=== PATIENT | male | born 1950 | race Caucasian/White ===

== ENCOUNTER 2024-01-13 13:33 | Outpatient (CLI) | payer MEDICARE, MEDICAID, SELFPAY | END 2024-01-13 13:34 | disposition home or self-care (01) | LOC: ANHAUDIO 13:34 | PROVIDERS: PCP Internal Medicine; Visit Provider Internal Medicine | DX: H90.41 Sensorineural hearing loss, unilateral, right ear, with unrestricted hearing on the contralateral side (principal); H90.72 Mixed conductive and sensorineural hearing loss, unilateral, left ear, with unrestricted hearing on the contralateral side | CPT/HCPCS: 92557; 92567 ==

== ENCOUNTER 2024-07-08 12:37 | Observation (INO) | payer MEDICARE, MEDICAID, SELFPAY ==
[2024-07-08] VITALS (33 sets, daily range): BP systolic 83–172; BP diastolic 53–124; PULSE 74–132; RESP 10–30; TEMP 36.4–37.7; O2SAT 94–100; BMI 22.8
--- NOTE | ~2024-07-08 | CT_ITS ---
CLINICAL INDICATION: Flank pain COMPARISON: None. TECHNIQUE: Multiple contiguous axial images of the abdomen and pelvis were performed without the admi nistration of intravenous contrast The dose-length product (DLP) was 284.78 mGy-cm. Automated exposure control and iterative reconstruction technique were employed. FINDINGS/OBSERVATIONS: Visualized lower thorax: The bilateral lung bases are clear. The heart is of normal size, without pericardial effusion. Liver: The liver demonstrates homogeneous attenuation and is not enlarged measuring 16 cm in longitudinal di mension. Gallbladder and biliary system: The gallbladder is distended, and otherwise unremarkable. Pancreas: Limited evaluation of the pancreas secondary to the lack of intravenous contrast. Spleen: The spleen demonstrates homogeneous attenuation and is not enlarged measuring 8 cm in longitudinal di mension. Kidneys: Left-sided hydronephrosis extending to the distal left ureter where a 3 mm calculus is identified. No hydronephrosis is present within the right kidney. Bilateral complex cysts with rim calcifications, for which follow-up examination is recommended with intravenous contrast, and renal mass protocol. Adrenal glands: Unremarkable. Gastrointestinal tract: Fecal stasis within the colon. Appendix: The appendix is not definitively visualized. However, no pericecal inflammatory change is identified suggest the presence of acute appendicitis. Vasculature: Calcified atherosclerotic disease. Lymph nodes: Limited evaluation without intravenous contrast. Pelvic structures: The bladder is only minimally distended, with thickened franco. The prostate gland is not enlarged. Body wall and musculoskeletal: Vertebral plana at the level of T12. Moderate degenerative disease within the remainder of the lumbosacral spine IMPRESSION: Left-sided hydroureteronephrosis secondary to a 3 mm calculus at the left ureterovesicular junction. Bilateral cysts demonstrating rim calcifications for which nonemergent ultrasound follow-up versus re nal mass protocol CT or MRI is recommended. Reviewed, dictated and finalized at location A. ER MAKER MACHINE IMPRESSION: Left-sided hydroureteronephrosis secondary to a 3 mm calculus at the left urete rovesicular junction. Bilateral cysts demonstrating rim calcifications for which nonemergent ultrasou nd follow-up versus renal mass protocol CT or MRI is recommended.
--- NOTE | ~2024-07-08 | XR_ITS ---
INTRAOPERATIVE FLUOROSCOPY: CLINICAL HISTORY: 73 years old Male; STENT PROCEDURE COMMENTS: Limited intraoperative fluoroscopy of the pelvis was performed. CUMULATIVE DOSE: 5.64 mGy FLUOROSCOPY TIME: 24.6 seconds FINDINGS/IMPRESSION: Please refer to operative note for further details. Reviewed, dictated and finalized at location A. TESTER
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
--- NOTE | 2024-07-08 12:49 | ECG_ITS ---
Test Date: 2024-07-08 13:06:38 Measurements Intervals [place] Rate: 84 P: 30 WA: 129 QRS: 53 QRSD: 81 T: 37 QT: 347 QTc: 411 Interpretive Statements SINUS RHYTHM EARLY PRECORDIAL R/S TRANSITION BORDERLINE ST-T WAVE ABNORMALITY- INFERIOR LEADS BASELINE ARTIFACT- I, II, III, AVR, AVL, AVF BORDERLINE ECG No previous ECG available for comparison Electronically Signed On 07-08-2024 16:57:33 [employer] by Aguilar Morrell D.O.
[2024-07-08 13:20] LABS: Basophils Absolute Auto 0.1 K/mm3 (0.0-0.1); Basophils Percent Auto 0.3 % (0.2-1.2); Hematocrit 40.3 % (42.0-52.0); Hemoglobin 13.6 g/dL (14.0-18.0); Immature Granulocyte Absolute 0.14 K/mm3 (0.00-0.031); Immature Granulocyte Percent A 0.8 % (0-0.5); Lymphocytes Absolute Auto 0.63 K/mm3 (0.9-3.2); Lymphocytes Percent Auto 3.6 % (18.3-44.2); Mean Corpuscular HGB Conc 33.7 g/dl (32-36); Mean Corpuscular Hemoglobin 28.9 pg (26-34); Mean Corpuscular Volume 85.7 fl (80-100); Mean Platelet Volume 10.3 fl (7.4-10.4); Monocytes Absolute Auto 1.6 K/mm3 (0.1-0.6); Neutrophils Absolute Auto 14.9 K/mm3 (1.3-6.7); Neutrophils Percent Auto 86.3 % (45.5-73.1); Platelet Count Result 234 k/mm3 (150-375); Red Cell Distribution Width 14.9 % (11.5-14.5); White Blood Count 17.3 K/mm3 (4.5-10.0)
[2024-07-08 13:29] LABS: Alanine Aminotransferase 18 U/L (6-50); Albumin Level 3.8 g/dL (3.5-5.1); Alkaline Phosphatase 86 U/L (38-126); Anion Gap 13 mmol/L (4-12); Aspartate Amino Transferase 36 U/L (17-59); Bilirubin,Total 0.8 mg/dL (0.2-1.3); Blood Urea Nitrogen 33 mg/dL (9-20); Calcium 9.3 mg/dL (8.4-10.2); Carbon Dioxide 21 mmol/L (22-30); Chloride 103 mmol/L (98-107); Estimated CRCL calculation 21 ml/min; Estimated Glomerular Filt Rate 25; Glucose 127 mg/dL (65-110); Potassium 3.9 mmol/L (3.4-5.0); Sodium 137 mmol/L (137-145)
--- OUTSIDE RECORDS SUMMARY | 2024-07-08 14:13 | XMS_ITS ---
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 Name Role Phone Rebeca Garcia Primary Care Provider Jesica Holder [phone] REASON FOR VISIT Methylphenidate refill Medications Medication SIG (Take, Route, Fr equency, Duration) Notes Start Date End Date Status Methylphenidate 20 mg 1 tablet Orally tw ice a day for 10 days F90.0 05/19/2024 Active Social History Sex Assigned At : Social History Observation Description Sex Assigned At Male Encounters Encounter Location Date Provider Diagnosis [place] [address] [facility] [place] [address] 05/19/2024 Jesica Holder Major depression F32.9 Assessments Encounter Date Diagnosis (ICD Code) Assessment Notes Treatment Notes Treatment Clinical Notes Section Notes 05/19/2024 Major depression (ICD-10 - F32.9) Plan Of Treatment Medication Medication Name Sig Start Date Stop Date Notes Methylphenidate 20 mg 1 tablet Orally tw ice a day for 10 days 05/19/2024 F90.0 Next Appt Details Provider Name:Rebeca Garcia, 04:00:00 PM, [address] [facility] [place] [place], [address], Progress Notes * MCCABE, JimmyDOB:1950 (73 yo M)Acc No.[id number]:05/19/2024 Patient: Jimmy ALONSO :1950 A ge:73 Y S ex:Male Address:[address] [place] [address], [address] * Refills Refill Methylphenidate tablet, 20 mg, Orally, 20 Tablet, 1 tablet, twice a day, 10 days, Refills=0 * true * Date: Generated for Jesús mendez/Donald/Katlyn on: 0 07/08/2024 02:12 PM BOTTOM CAGER
--- OUTSIDE RECORDS SUMMARY | 2024-07-08 14:13 | XMS_ITS | Data Portability ---
Author Organization [facility] LATOYAPhilippe Address [address] [place] [address] Care Team Providers Care Health And Safety Manager Name Role Phone DEANGELO GUSMAN Primary Care Provider Assessment Encounter Date Assessment Date Assessment LastModified by Organization Details LastModified Time 11/24/2023 11/24/2023 urology. Neurology. Management of GERD hyperlipidemia hypertension chronic back pain were discussed follow up with me in 4 months can you continue to see pain management Not available 01/02/2024 15:33:16 Plan of Treatment Reminders Order Date Submit Date Provider Last Modified By Organization Details Last Modified Time Details Appointments ANY 15 2024 01:30P M Deangelo Gusman MD Not available Not available Not available Lab CBC w/ auto diff 2023 024 [facility], [address] [place] [address], [facility] [address], [place], [address], 11/25/2023 08:24:25 lipid panel, serum 2023 024 [facility], [address] [place] [address], [address], [place], [address], 11/25/2023 08:24:24 CMP, serum or plasma 2023 024 [facility], [address] [place] [address], [address], [place], [address], 11/25/2023 08:24:25 CMP, serum or plasma 2023 024 [facility], [address], [address], [place], [address], 08/28/2023 08:21:22 PSA, total, serum or plasma 2023 024 [facility], [address], [address], [place], [address], 08/28/2023 08:21:23 iron + total iron-b inding capaci ty (TIBC) , serum 2022 023 [facility] (Lab), [address], [place], [address], 02/10/2023 08:31:25 unlist ed lab - ferrit in [email or web address]Lab), [address], [place], [address], 01/18/2023 16:36:49 unlist ed lab - CBC with differ ential /plate let [email or web address]Lab), [address], [place], [address], 01/18/2023 16:36:49 CMP, serum or plasma 2022 023 [facility], [address] [place], [place] [address], [address], [place], [address], 11/03/2022 20:08:58 HbA1c (hemog lobin A1c), blood 2022 023 [facility], [address] [place], [place] [address], [address], [place], [address], 11/04/2022 06:17:14 testos terone , total, serum 2022 023 [facility], [address] [facility], [address], [place], [address], 11/04/2022 06:17:14 lipid panel, serum 2022 023 [facility], [address], [address], [place], [address], 11/03/2022 20:08:58 CBC w/ auto diff 2022 023 [facility], [address] [facility], [address], [place], [address], 11/03/2022 20:09:00 urinal ysis, dipsti ck 2022 023 [facility], [address] [facility], [address], [place], [address], 11/03/2022 20:08:59 Referral neurol ogist referr al 2023 024 deven Mcneil MD, [address] [facility], [facility], [place], [address], 06/19/2024 09:23:58 urolog ist referr al 2023 024 deven De Guzman MD, [address] [place], [address], 06/19/2024 09:23:58 neurol ogist referr al - pLEASE CALL PATIJESE T FOR APPOIN TMERNT , THANKS ! 2023 024 atmaribell Not available 04/03/2024 15:56:56 audiol ogist referr al - pLEASE CALL ZULEMA T FOR APPOIN TMENT, THANKS ! [facility], [address] [place] [address] [address], [place], [address], 01/14/2024 10:11:04 urolog ist referr al - Please call zulema t for appoin tment, thanks ! [address] [facility] Asaf Johnson MD, [address], [place], [address], 06/15/2023 15:22:05 gastro entero logist referr al [address], [address], [place], [address], 12/14/2022 12:35:23 neurol ogist referr al - Please call zulema t for appoin tment, thanks !! 2022 023 [facility], [address] [facility], [place] [address], [place], [address], 06/15/2023 15:22:06 neurol ogist referr al [address] [facility] Not available 12/25/2022 11:51:36 urolog ist referr al 2022 023 [facility], [address], [place], [address], 06/15/2023 15:22:04 Procedures rhythm ECG, 1-3 leads; with interp retati on and report (PROC) 2022 023 [facility] ([facility]), [address] [place], [address], 11/26/2022 14:59:43 Surgeries None record ed. Imaging US, dopple r, arteri al - Please call patijese t for appoin tment, thanks ! 2022 023 [facility] ([facility]), [address] [place], [address], 11/26/2022 14:59:38 US, duplex , caroti d artery - still waitin g on ins auth for US, ABDOMI NAL AORTA 2022 023 [facility] ([facility]), [address], [place], [address], 08/12/2022 10:55:13 Medication Orders gabape ntin 600 mg tablet 2023 024 [facility], [address], [place], [place], [id number], 06/18/2023 17:44:54 omepra zole 20 mg capsul e,humberto yed releas e 2023 024 [facility], [address] [place] [address] , [address], [place], [place], [id number], 06/18/2023 17:44:54 pravas tatin 20 mg tablet 2023 024 [facility], [address], [place], [place], [id number], 06/18/2023 17:44:53 tamsul osin 0.4 mg capsul e 2023 024 [facility], [address] [place] [address] [address], [address], [place], [place], [id number], 06/18/2023 17:44:51 finast eride 5 mg tablet 2023 024 [facility], [address] [place] [address] , [address], [place], [place], [id number], 06/18/2023 17:44:53 losart an 25 mg tablet 2023 024 [facility], [address] [place] [address] , [address], [place], [place], [id number], 06/18/2023 17:44:54 Patient TargetsNo targets recorded. Patient Instructions Encounter Date Encounter Id Patient Instructions Last Modified By Organization Details Last Modified Time 08/05/2022 [id number] osteoporosis: care instructions [facility] Not available 08/05/2022 16:26:02 high cholesterol : care instructions [facility] Not available 08/05/2022 16:26:02 abdominal aortic aneurysm: care instructions si Not available 08/05/2022 16:26:02 carotid stenosis : care instructions si Not available 08/05/2022 16:26:01 12/04/2022 [id number] A healthy lifestyle: care instructions [facility] Not available 12/04/2022 16:30:18 anemia: care instructions [facility] Not available 12/04/2022 16:30:18 06/18/2023 [id number] high cholesterol : care instructions [facility] Not available 06/18/2023 17:44:31 hearing loss: care instructions [facility] Not available 06/18/2023 17:32:46 benign prostatic hyperplasia: care instructions 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 Referring Physician: Deshawn Lr Internal Medicine, Encounter Date: 12/04/2022 Public Relations Writer Referral for Floyd ateral hearing loss pLEASE CALL PATIENT FOR APPOINTMENT, THANKS! 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 Referring Physician: Deshawn Lr, Internal Medicine, Encounter Date: 06/18/2023 Urologist Referral for Phimo sis Referring Physician: Deangelo Gusman, Internal Medicine, Encounter Date: 11/24/2023 Neurologist Referral for Patrick mor Referring Physician: Deangelo Gusman, Internal Medicine, Encounter Date: 11/24/2023 Results Created Date Observation Date Name Description Value Unit Range Abnormal Flag Note LastModifiedBy Organization Detail LastModifiedTime 11/04/19 23 11/03/2022 LIPID PANEL WITH LDL/H DL RATIO cholesterol, total 191.7 mg/dL 140.0- 200.0 Not Available [facility] [address] [place], [address], 11/03/2022 20:08:57 11/04/19 23 11/03/2022 LIPID PANEL WITH LDL/H DL RATIO triglyceride s 157 mg/dL <=150 above high normal Not Available [facility] [address] [place], [address], 11/03/2022 20:08:57 11/04/19 23 11/03/2022 LIPID PANEL WITH LDL/H DL RATIO HDL cholesterol 51.4 mg/dL 40.0-1 00.0 Not Available [facility] [address] [place], [address], 11/03/2022 20:08:57 11/04/19 23 11/03/2022 LIPID PANEL WITH LDL/H DL RATIO VLDL cholesterol sammy 31.40 mg/dL 5.00-4 0.00 Not Available [facility] [address] [place], [address], 11/03/2022 20:08:57 11/04/19 23 11/03/2022 LIPID PANEL WITH LDL/H DL RATIO LDL chol calc ([facility]) 112.7 mg/dL 0.0-99 .0 above high normal Not Available [facility] [address] [place], [address], 11/03/2022 20:08:57 11/04/19 23 11/03/2022 LIPID PANEL WITH LDL/H DL RATIO LDL/HDL ratio 2.2 Not Available [facility] Department [address] [place], [address], 11/03/2022 20:08:57 11/04/19 23 11/03/2022 COMP. METAB OLIC PANEL (14) glucose 95 mg/dL 65-99 ANION GP 20.0 mmol/ L N OSMOL 277.0 mOsM/ L N REFER ENCE RANGE : 275.0 -301. 0 Not Available [facility] [address] [place], [address], 11/03/2022 20:08:58 11/04/19 23 11/03/2022 COMP. METAB OLIC PANEL (14) BUN 28 mg/dL 8-26 above high normal Not Available [facility] [address] [place], [address], 11/03/2022 20:08:58 11/04/19 23 11/03/2022 COMP. METAB OLIC PANEL (14) creatinine 1.34 mg/dL 0.50-1 .40 Not Available [facility] [address] [place], [address], 11/03/2022 20:08:58 11/04/19 23 11/03/2022 COMP. METAB OLIC PANEL (14) eGFR 56 mL/mi n/1.7 3 >=60 below low normal Not Available [facility] [address] [place], [address], 11/03/2022 20:08:58 11/04/19 23 11/03/2022 COMP. METAB OLIC PANEL (14) BUN/creatini ne ratio 21.0 Not Available [facility] Department [address] [place], [address], 11/03/2022 20:08:58 11/04/19 23 11/03/2022 COMP. METAB OLIC PANEL (14) sodium 136.0 mmol/ L 136.0- 144.0 Not Available [facility] [address] [place], [address], 11/03/2022 20:08:58 11/04/19 23 11/03/2022 COMP. METAB OLIC PANEL (14) potassium 4.1 mmol/ L 3.5-5. 3 Not Available [facility] [address] [place], [address], 11/03/2022 20:08:58 11/04/19 23 11/03/2022 COMP. METAB OLIC PANEL (14) chloride 101 mmol/ l 101-11 1 Not Available [facility] [address] [place], [address], 11/03/2022 20:08:58 11/04/19 23 11/03/2022 COMP. METAB OLIC PANEL (14) carbon dioxide, total 20.0 mmol/ L 21.0-3 2.0 below low normal Not Available [facility] [address] [place], [address], 11/03/2022 20:08:58 11/04/19 23 11/03/2022 COMP. METAB OLIC PANEL (14) calcium 9.5 mg/dL 8.2-10 .0 Not Available [facility] [address] [place], [address], 11/03/2022 20:08:58 11/04/19 23 11/03/2022 COMP. METAB OLIC PANEL (14) protein, total 6.7 g/dL 6.7-8. 2 Not Available [facility] [address] [place], [address], 11/03/2022 20:08:58 11/04/19 23 11/03/2022 COMP. METAB OLIC PANEL (14) albumin 4.5 g/dL 3.5-5. 5 Not Available [facility] [address] [place], [address], 11/03/2022 20:08:58 11/04/19 23 11/03/2022 COMP. METAB OLIC PANEL (14) globulin, total 2.2 g/dL 1.5-4. 5 Not Available [facility] Department [address] [place] [address], [address], 11/03/2022 20:08:58 11/04/19 23 11/03/2022 COMP. METAB OLIC PANEL (14) A/G ratio 2.0 Not Available [facility] Department [address] [place] [address], [address], 11/03/2022 20:08:58 11/04/19 23 11/03/2022 COMP. METAB OLIC PANEL (14) bilirubin, total 0.4 mg/dL 0.0-1. 2 Not Available [facility] [address] [place], [address], 11/03/2022 20:08:58 11/04/19 23 11/03/2022 COMP. METAB OLIC PANEL (14) alkaline phosphatase 75.1 IU/L 42.0-1 21.0 Not Available [facility] [address] [place] [address], [address], 11/03/2022 20:08:58 11/04/19 23 11/03/2022 COMP. METAB OLIC PANEL (14) AST (SGOT) 18.5 U/L 10.0-4 2.0 Not Available [facility] [address] [place] [address], [address], 11/03/2022 20:08:58 11/04/19 23 11/03/2022 COMP. METAB OLIC PANEL (14) ALT (SGPT) 12.3 U/L 10.0-6 0.0 Not Available [facility] [address] [place], [address], 11/03/2022 20:08:58 11/04/19 23 11/03/2022 URINA LYSIS , ROUTI NE specific gravity 1.020 1.001- 1.035 Not Available [facility] [address] [place], [address], 11/03/2022 20:08:59 11/04/19 23 11/03/2022 URINA LYSIS , ROUTI NE pH 6.0 5.0-7. 0 Not Available [facility] [address] [place], [address], 11/03/2022 20:08:59 11/04/19 23 11/03/2022 URINA LYSIS , ROUTI NE urine-color YELLOW yellow Not Available [facility] Department [address] [place], [address], 11/03/2022 20:08:59 11/04/19 23 11/03/2022 URINA LYSIS , ROUTI NE appearance CLEAR Not Available [facility] Department [address] [place], [address], 11/03/2022 20:08:59 11/04/19 23 11/03/2022 URINA LYSIS , ROUTI NE WBC esterase SMALL abnormal Not Available [facility] [place] [facility] Department [address] [place], [address], 11/03/2022 20:08:59 11/04/19 23 11/03/2022 URINA LYSIS , ROUTI NE protein Commen t NEGAT ROSE Not Available [facility] [address] [place], [address], 11/03/2022 20:08:59 11/04/19 23 11/03/2022 URINA LYSIS , ROUTI NE glucose Commen t NEGAT ROSE Not Available [facility] [address] [place], [address], 11/03/2022 20:08:59 11/04/19 23 11/03/2022 URINA LYSIS , ROUTI NE ketones Commen t NEGAT ROSE Not Available [facility] [address] [place], [address], 11/03/2022 20:08:59 11/04/19 23 11/03/2022 URINA LYSIS , ROUTI NE occult blood Commen t NEGAT ROSE Not Available [facility] [address] [place], [address], 11/03/2022 20:08:59 11/04/19 23 11/03/2022 URINA LYSIS , ROUTI NE bilirubin Commen t NEGAT ROSE Not Available [facility] [address] [place], [address], 11/03/2022 20:08:59 11/04/19 23 11/03/2022 URINA LYSIS , ROUTI NE urobilinogen ,semi-qn 0.2 eu/dL <=1.0 Not Available [facility] Department [address] [place], [address], 11/03/2022 20:08:59 11/04/19 23 11/03/2022 URINA LYSIS , ROUTI NE nitrite, urine Commen t negati ve NEGAT ROSE Not Available [facility] [address] [place], [address], 11/03/2022 20:08:59 11/04/19 23 11/03/2022 CBC WITH DIFFE RENTI AL/PL ATELE T WBC 6.9 K/uL 3.4-10 .8 Not Available [facility] [address] [place], [address], 11/03/2022 20:09:00 11/04/19 23 11/03/2022 CBC WITH DIFFE RENTI AL/PL ATELE T RBC 4.5 M/uL 4.5-6. 3 Not Available [facility] [address] [place], [address], 11/03/2022 20:09:00 11/04/19 23 11/03/2022 CBC WITH DIFFE RENTI AL/PL ATELE T hemoglobin 13.0 g/dL 13.5-1 7.5 below low normal Not Available [facility] [address] [place], [address], 11/03/2022 20:09:00 11/04/19 23 11/03/2022 CBC WITH DIFFE RENTI AL/PL ATELE T hematocrit 39.9 % 40.0-5 2.0 below low normal Not Available [facility] [address] [place], [address], 11/03/2022 20:09:00 11/04/19 23 11/03/2022 CBC WITH DIFFE RENTI AL/PL ATELE T MCV 88 fL 80-95 Not Available [facility] [address] [place], [address], 11/03/2022 20:09:00 11/04/19 23 11/03/2022 CBC WITH DIFFE RENTI AL/PL ATELE T MCH 29 pg 27-32 Not Available [facility] [address] [place], [address], 11/03/2022 20:09:00 11/04/19 23 11/03/2022 CBC WITH DIFFE RENTI AL/PL ATELE T MCHC 33 g/dL 32-36 Not Available [facility] [address] [place], [address], 11/03/2022 20:09:00 11/04/1911/03/2022 CBC WITH DIFFE RENTI AL/PL ATELE T RDW 14.0 % 11.5-1 4.5 Not Available [facility] [address] [place], [address], 11/03/2022 20:09:00 11/04/19 23 11/03/2022 CBC WITH DIFFE RENTI AL/PL ATELE T platelets 267 K/uL 155-37 9 MPV 11.1 FL 8.9-1 2.7 N Not Available [facility] Department [address] [place], [address], 11/03/2022 20:09:00 11/04/1911/03/2022 CBC WITH DIFFE RENTI AL/PL ATELE T neutrophils 58.9 % 40.0-7 4.0 Not Available [facility] [address] [place], [address], 11/03/2022 20:09:00 11/04/1911/03/2022 CBC WITH DIFFE RENTI AL/PL ATELE T lymphs 30.0 % 14.0-4 6.0 Not Available [facility] Department [address] [place], [address], 11/03/2022 20:09:00 11/04/1911/03/2022 CBC WITH DIFFE RENTI AL/PL ATELE T monocytes 7.3 % 4.0-12 .0 Not Available [facility] [address] [place], [address], 11/03/2022 20:09:00 11/04/1911/03/2022 CBC WITH DIFFE RENTI AL/PL ATELE T eos 2 % 0-5 Not Available [facility] Department [address] [place], [address], 11/03/2022 20:09:00 11/04/1911/03/2022 CBC WITH DIFFE RENTI AL/PL ATELE T basos 0.9 % 0.0-1. 0 Not Available [facility] [address] [place], [address], 11/03/2022 20:09:00 11/04/1911/03/2022 CBC WITH DIFFE RENTI AL/PL ATELE T neutrophils (absolute) 4.1 K/uL 1.4-7. 0 Not Available [facility] Department [address] [place], [address], 11/03/2022 20:09:00 11/04/19 23 11/03/2022 CBC WITH DIFFE RENTI AL/PL ATELE T lymphs (absolute) 2.1 K/uL 0.7-3. 1 Not Available [facility] [address] [place], [address], 11/03/2022 20:09:00 11/04/1911/03/2022 CBC WITH DIFFE RENTI AL/PL ATELE T monocytes(ab solute) 0.5 K/uL 0.1-0. 9 Not Available [facility] Department [address] [place], [address], 11/03/2022 20:09:00 11/04/19 23 11/03/2022 CBC WITH DIFFE RENTI AL/PL ATELE T eos (absolute) 0.2 K/uL 0.0-0. 4 Not Available [facility] [address] [place], [address], 11/03/2022 20:09:00 11/04/19 23 11/03/2022 CBC WITH DIFFE RENTI AL/PL ATELE T baso (absolute) 0.1 K/uL 0.0-0. 3 Not Available [facility] [address] [place], [address], 11/03/2022 20:09:00 11/04/19 23 11/03/2022 CBC WITH DIFFE RENTI AL/PL ATELE T immature granulocytes 0.7 % Not Available [facility] Department [address] [place], [address], 11/03/2022 20:09:00 11/04/19 23 11/03/2022 CBC WITH DIFFE RENTI AL/PL ATELE T immature grans (abs) 0.1 K/uL Not Available [facility] Department [address] [place], [address], 11/03/2022 20:09:00 11/04/19 23 11/03/2022 CBC WITH DIFFE RENTI AL/PL ATELE T NRBC 0 % Not Available [facility] Department [address] [place], [address], 11/03/2022 20:09:00 11/04/19 23 11/04/2022 HEMOG LOBIN A1C hemoglobin A1C 5.2 % 4.8-5. 6 Predi abete s: 5.7 - 6.4 Diabe kerry: >6.4 Glyce fallon contr ol for adult s with diabe kerry: <7.0 Not Available [facility] ([facility]) [address] [place], [address], 11/04/2022 06:17:13 11/04/19 23 11/04/2022 TESTO STERO NE testosterone 407 NG/dL 264-91 6 Adult male refer ence inter alida is based on a popul ation of healt hy nonob christy males (BMI <30) betwe en 19 and 39 years old. Mariposa soria et.al . JCEM 2017, 102;1 161-1 173. PMID: 77851 103. Not Available [facility] ([facility]) [address] [facility], [place], [address], 11/04/2022 06:17:14 11/04/1911/03/2022 MICRO SCOPI C EXAMI NATIO N WBC 0-2 Not Available [facility] [address] [place], [address], 11/04/2022 06:17:26 11/04/19 23 11/03/2022 MICRO SCOPI C EXAMI NATIO N RBC Commen t NONE SEEN Not Available [facility] [address] [place], [address], 11/04/2022 06:17:26 11/04/19 23 11/03/2022 MICRO SCOPI C EXAMI NATIO N epithelial cells (non renal) Commen t NONE SEEN Not Available [facility] [address] [place], [address], 11/04/2022 06:17:26 11/04/19 23 11/03/2022 MICRO SCOPI C EXAMI NATIO N bacteria Commen t NONE SEEN Not Available [facility] [address] [place], [address], 11/04/2022 06:17:26 08/27/19 24 08/28/2023 COMP. METAB OLIC PANEL (14) glucose - mg/dL Test not perfo rmed. Serum was in conta ct with cells when recei himanshu which will make the resul t inacc urate . Not Available [facility] ([facility]) [address] [place], [address], 08/28/2023 08:21:22 08/27/19 24 08/28/2023 COMP. METAB OLIC PANEL (14) BUN 25 mg/dL 8-27 Not Available [facility] ([facility]) [address] [place], [address], 08/28/2023 08:21:22 08/27/19 24 08/28/2023 COMP. METAB OLIC PANEL (14) creatinine 1.71 mg/dL 0.76-1 .27 above high normal Not Available [facility] ([facility]) [address] [place], [address], 08/28/2023 08:21:22 08/27/19 24 08/28/2023 COMP. METAB OLIC PANEL (14) eGFR 42 mL/mi n/1.7 3 >59 below low normal Not Available [facility] ([facility]) [address] [place], [address], 08/28/2023 08:21:22 08/27/19 24 08/28/2023 COMP. METAB OLIC PANEL (14) BUN/creatini ne ratio 15 10-24 Not Available [facility] ([facility]) [address] [place], [address], 08/28/2023 08:21:22 08/27/19 24 08/28/2023 COMP. METAB OLIC PANEL (14) sodium 142 mmol/ L 134-14 4 Not Available [facility] ([facility]) [address] [facility], [place], [address], 08/28/2023 08:21:22 08/27/19 24 08/28/2023 COMP. METAB OLIC PANEL (14) potassium - mmol/ L Test not perfo rmed. Serum was in conta ct with cells when recei himanshu which will make the resul t inacc urate . Not Available [facility] ([facility]) [address] [place], [address], 08/28/2023 08:21:22 08/27/19 24 08/28/2023 COMP. METAB OLIC PANEL (14) chloride 103 mmol/ L 96-106 Not Available [facility] ([facility]) [address] [place], [address], 08/28/2023 08:21:22 08/27/19 24 08/28/2023 COMP. METAB OLIC PANEL (14) carbon dioxide, total 19 mmol/ L 20-29 below low normal Not Available [facility] ([facility]) [address] [place], [address], 08/28/2023 08:21:22 08/27/19 24 08/28/2023 COMP. METAB OLIC PANEL (14) calcium 9.4 mg/dL 8.6-10 .2 Not Available [facility] ([facility]) [address] [place], [address], 08/28/2023 08:21:22 08/27/19 24 08/28/2023 COMP. METAB OLIC PANEL (14) protein, total 7.3 g/dL 6.0-8. 5 Not Available [facility] ([facility]) [address], [place], [address], 08/28/2023 08:21:22 08/27/19 24 08/28/2023 COMP. METAB OLIC PANEL (14) albumin 4.7 g/dL 3.8-4. 8 Not Available [facility] ([facility]) [address], [place], [address], 08/28/2023 08:21:22 08/27/19 24 08/28/2023 COMP. METAB OLIC PANEL (14) globulin, total 2.6 g/dL 1.5-4. 5 Not Available [facility] ([facility]) [address], [place], [address], 08/28/2023 08:21:22 08/27/19 24 08/28/2023 COMP. METAB OLIC PANEL (14) A/G ratio 1.8 1.2-2. 2 Not Available [facility] ([facility]) [address], [place], [address], 08/28/2023 08:21:22 08/27/19 24 08/28/2023 COMP. METAB OLIC PANEL (14) bilirubin, total 0.4 mg/dL 0.0-1. 2 Not Available [facility] ([facility]) [address], [place], [address], 08/28/2023 08:21:22 08/27/19 24 08/28/2023 COMP. METAB OLIC PANEL (14) alkaline phosphatase 89 IU/L 44-121 Not Available [facility] ([facility]) [address], [place], [address], 08/28/2023 08:21:22 08/27/19 24 08/28/2023 COMP. METAB OLIC PANEL (14) AST (SGOT) 25 IU/L 0-40 Not Available [facility] ([facility]) [address] [facility], [place], [address], 08/28/2023 08:21:22 08/27/19 24 08/28/2023 COMP. METAB OLIC PANEL (14) ALT (SGPT) 14 IU/L 0-44 Not Available [facility] ([facility]) [address] [facility], [place], [address], 08/28/2023 08:21:22 08/27/19 24 08/28/2023 PROST ATE-S PECIF IC AG prostate specific Ag 1.8 NG/mL 0.0-4. 0 Berna ECLIA metho dolog y. Accor ding to the [employer]i can [employer] i[employer] n, Serum PSA shoul d decre ase and remai n at undet ectab le level s after radic al prost atect mechelle. The AUA defin es bioch emica l recur rence as an initi al PSA value 0.2 ng/mL or great er follo wed by a subse quent confi rmato ry PSA value 0.2 ng/mL or great er. Value s obtai angelo with diffe rent assay metho ds or kits canno t be used inter daniel eably . Resul ts canno t be inter prete d as absol lilly evide nce of the prese nce or absen ce of sonya cisneros se. Not Available [facility] ([facility]) [address] [facility], [place], [address], 08/28/2023 08:21:23 11/24/19 24 11/25/2023 LIPID PANEL cholesterol, total 150 mg/dL 100-19 9 Not Available [facility] ([facility]) [address] [facility], [place], [address], 11/25/2023 08:24:24 11/24/19 24 11/25/2023 LIPID PANEL triglyceride s 232 mg/dL 0-149 above high normal Not Available [facility] ([facility]) [address] [place], [address], 11/25/2023 08:24:24 11/24/19 24 11/25/2023 LIPID PANEL HDL cholesterol 44 mg/dL >39 Not Available [facility] ([facility]) [address] [place], [address], 11/25/2023 08:24:24 11/24/19 24 11/25/2023 LIPID PANEL VLDL cholesterol sammy 38 mg/dL 5-40 Not Available [facility] ([facility]) [address] [place], [address], 11/25/2023 08:24:24 11/24/19 24 11/25/2023 LIPID PANEL LDL chol calc ([facility]) 68 mg/dL 0-99 Not Available [facility] ([facility]) [address] [place], [address], 11/25/2023 08:24:24 11/24/19 24 11/25/2023 COMP. METAB OLIC PANEL (14) glucose 86 mg/dL 70-99 Not Available [facility] ([facility]) [address] [place], [address], 11/25/2023 08:24:25 11/24/19 24 11/25/2023 COMP. METAB OLIC PANEL (14) BUN 14 mg/dL 8-27 Not Available [facility] ([facility]) [address] [place], [address], 11/25/2023 08:24:25 11/24/19 24 11/25/2023 COMP. METAB OLIC PANEL (14) creatinine 1.66 mg/dL 0.76-1 .27 above high normal Not Available [facility] ([facility]) [address] [place], [address], 11/25/2023 08:24:25 11/24/19 24 11/25/2023 COMP. METAB OLIC PANEL (14) eGFR 43 mL/mi n/1.7 3 >59 below low normal Not Available [facility] ([facility]) [address] [facility], [place], [address], 11/25/2023 08:24:25 11/24/19 24 11/25/2023 COMP. METAB OLIC PANEL (14) BUN/creatini ne ratio 8 10-24 below low normal Not Available [facility] ([facility]) [address] [facility], [place], [address], 11/25/2023 08:24:25 11/24/19 24 11/25/2023 COMP. METAB OLIC PANEL (14) sodium 138 mmol/ L 134-14 4 Not Available [facility] ([facility]) [address] [facility], [place], [address], 11/25/2023 08:24:25 11/24/19 24 11/25/2023 COMP. METAB OLIC PANEL (14) potassium 4.6 mmol/ L 3.5-5. 2 Not Available [facility] ([facility]) [address] [facility], [place], [address], 11/25/2023 08:24:25 11/24/19 24 11/25/2023 COMP. METAB OLIC PANEL (14) chloride 102 mmol/ L 96-106 Not Available [facility] ([facility]) [address] [place], [address], 11/25/2023 08:24:25 11/24/19 24 11/25/2023 COMP. METAB OLIC PANEL (14) carbon dioxide, total 22 mmol/ L 20-29 Not Available [facility] ([facility]) [address] [place], [address], 11/25/2023 08:24:25 11/24/19 24 11/25/2023 COMP. METAB OLIC PANEL (14) calcium 9.1 mg/dL 8.6-10 .2 Not Available [facility] ([facility] [address] [place], [address], 11/25/2023 08:24:25 11/24/19 24 11/25/2023 COMP. METAB OLIC PANEL (14) protein, total 6.5 g/dL 6.0-8. 5 Not Available [facility] ([facility]) [address] [place], [address], 11/25/2023 08:24:25 11/24/19 24 11/25/2023 COMP. METAB OLIC PANEL (14) albumin 4.2 g/dL 3.8-4. 8 Not Available [facility] ([facility]) [address] [place], [address], 11/25/2023 08:24:25 11/24/19 24 11/25/2023 COMP. METAB OLIC PANEL (14) globulin, total 2.3 g/dL 1.5-4. 5 Not Available [facility] ([facility]) [address] [place], [address], 11/25/2023 08:24:25 11/24/19 24 11/25/2023 COMP. METAB OLIC PANEL (14) bilirubin, total 0.4 mg/dL 0.0-1. 2 Not Available [facility] ([facility]) [address] [place], [address], 11/25/2023 08:24:25 11/24/19 24 11/25/2023 COMP. METAB OLIC PANEL (14) alkaline phosphatase 92 IU/L 44-121 Not Available [facility] ([facility]) [address] [place], [address], 11/25/2023 08:24:25 11/24/19 24 11/25/2023 COMP. METAB OLIC PANEL (14) AST (SGOT) 27 IU/L 0-40 Not Available [facility] ([facility]) [address] [facility], [place], [address], 11/25/2023 08:24:25 11/24/19 24 11/25/2023 COMP. METAB OLIC PANEL (14) ALT (SGPT) 14 IU/L 0-44 Not Available [facility] ([facility]) [address] [facility], [place], [address], 11/25/2023 08:24:25 11/24/19 24 11/25/2023 CBC WITH DIFFE RENTI AL/PL ATELE T WBC 7.2 x10e3 /uL 3.4-10 .8 Not Available [facility] ([facility]) [address] [place], [address], 11/25/2023 08:24:25 11/24/19 24 11/25/2023 CBC WITH DIFFE RENTI AL/PL ATELE T RBC 4.19 x10e6 /uL 4.14-5 .80 Not Available [facility] ([facility]) [address] [facility], [place], [address], 11/25/2023 08:24:25 11/24/19 24 11/25/2023 CBC WITH DIFFE RENTI AL/PL ATELE T hemoglobin 12.0 g/dL 13.0-1 7.7 below low normal Not Available [facility] ([facility]) [address] [place], [address], 11/25/2023 08:24:25 11/24/19 24 11/25/2023 CBC WITH DIFFE RENTI AL/PL ATELE T hematocrit 37.1 % 37.5-5 1.0 below low normal Not Available [facility] ([facility]) [address] [place], [address], 11/25/2023 08:24:25 11/24/19 24 11/25/2023 CBC WITH DIFFE RENTI AL/PL ATELE T MCV 89 fL 79-97 Not Available [facility] ([facility]) [address] [place], [address], 11/25/2023 08:24:25 11/24/19 24 11/25/2023 CBC WITH DIFFE RENTI AL/PL ATELE T MCH 28.6 pg 26.6-3 3.0 Not Available [facility] ([facility]) [address] [facility], [place], [address], 11/25/2023 08:24:25 11/24/19 24 11/25/2023 CBC WITH DIFFE RENTI AL/PL ATELE T MCHC 32.3 g/dL 31.5-3 5.7 Not Available [facility] ([facility]) [address] [facility], [place], [address], 11/25/2023 08:24:25 11/24/19 24 11/25/2023 CBC WITH DIFFE RENTI AL/PL ATELE T RDW 13.1 % 11.6-1 5.4 Not Available [facility] ([facility]) [address] [facility], [place], [address], 11/25/2023 08:24:25 11/24/19 24 11/25/2023 CBC WITH DIFFE RENTI AL/PL ATELE T platelets 298 x10e3 /uL 150-45 0 Not Available [facility] ([facility]) [address] [facility], [place], [address], 11/25/2023 08:24:25 11/24/19 24 11/25/2023 CBC WITH DIFFE RENTI AL/PL ATELE T neutrophils 62 % notest ab. Not Available [facility] ([facility]) [address] [facility], [place], [address], 11/25/2023 08:24:25 11/24/19 24 11/25/2023 CBC WITH DIFFE RENTI AL/PL ATELE T lymphs 26 % notest ab. Not Available [facility] ([facility]) [address] [place], [address], 11/25/2023 08:24:25 11/24/19 24 11/25/2023 CBC WITH DIFFE RENTI AL/PL ATELE T monocytes 8 % notest ab. Not Available [facility] ([facility]) [address] [facility], [place], [address], 11/25/2023 08:24:25 11/24/19 24 11/25/2023 CBC WITH DIFFE RENTI AL/PL ATELE T eos 3 % notest ab. Not Available [facility] ([facility]) [address] [facility], [place], [address], 11/25/2023 08:24:25 11/24/19 24 11/25/2023 CBC WITH DIFFE RENTI AL/PL ATELE T basos 1 % notest ab. Not Available [facility] ([facility]) [address] [place], [address], 11/25/2023 08:24:25 11/24/19 24 11/25/2023 CBC WITH DIFFE RENTI AL/PL ATELE T neutrophils (absolute) 4.5 x10e3 /uL 1.4-7. 0 Not Available [facility] ([facility]) [address] [facility], [place], [address], 11/25/2023 08:24:25 11/24/19 24 11/25/2023 CBC WITH DIFFE RENTI AL/PL ATELE T lymphs (absolute) 1.9 x10e3 /uL 0.7-3. 1 Not Available [facility] ([facility]) [address] [place], [address], 11/25/2023 08:24:25 11/24/19 24 11/25/2023 CBC WITH DIFFE RENTI AL/PL ATELE T monocytes(ab solute) 0.6 x10e3 /uL 0.1-0. 9 Not Available [facility] ([facility]) [address] [place], [address], 11/25/2023 08:24:25 11/24/19 24 11/25/2023 CBC WITH DIFFE RENTI AL/PL ATELE T eos (absolute) 0.2 x10e3 /uL 0.0-0. 4 Not Available [facility] ([facility]) [address] [facility], [place], [address], 11/25/2023 08:24:25 11/24/19 24 11/25/2023 CBC WITH DIFFE RENTI AL/PL ATELE T baso (absolute) 0.1 x10e3 /uL 0.0-0. 2 Not Available [facility] ([facility]) [address] [facility], [place], [address], 11/25/2023 08:24:25 11/24/19 24 11/25/2023 CBC WITH DIFFE RENTI AL/PL ATELE T immature granulocytes 0 % notest ab. Not Available [facility] ([facility]) [address] [facility], [place], [address], 11/25/2023 08:24:25 11/24/19 24 11/25/2023 CBC WITH DIFFE RENTI AL/PL ATELE T immature grans (abs) 0.0 x10e3 /uL 0.0-0. 1 Not Available [facility] ([facility]) [address] [facility], [place], [address], 11/25/2023 08:24:25 01/06/20 23 11/18/2022 rhyth m ECG, 1-3 leads ; with inter preta tion and repor t (PROC ) No observ ation record ed. [facility] ([employer]) [address] [place], [address], 02/18/2023 10:01:44 03/02/20 24 03/02/2024 CT, chest , w/o contr ast No observ ation record ed. [facility] [address] [place], [address], 03/16/2024 11:15:03 07/08/19 25 07/08/2024 lissethi vanessa/gerald cooper tic resul t No observ ation record ed. [facility] [address], [place], [address], 07/08/2024 15:04:34 Result Notes None recorded. Problems Name Problem SNOMED Code Status Onset Date Resolution Date Notes Provider Name and Address Organization Details Recorded Time Phimosis 239075008 Active 2023 Felisa Weiner MA null, [place] - [facility] 4 15:22:05 Tremor 51202277 Active 2023 Felisa Weiner MA null, [place] [facility] 4 15:22:05 Gastroesophag eal reflux disease without esophagitis 248184461 Active 2023 Deangelo Gusman MD Attn: Accounting ,[address] [facility], [place], [address] , [place] - [facility] 4 15:30:56 Hyperlipidemi a 39367933 Active Not Available [facility] 4 19:05:31 Acid reflux 385496321 Active Not Available [facility] 4 19:05:31 Chronic cough 33657997 Active Not Available [facility] 4 19:05:31 Chronic renal impairment Active Not Available [facility] 4 19:05:31 Cellulitis of hand 69112103 Active Not Available [facility] 4 19:05:31 Fracture of thoracic spine 725792093 Active Not Available [facility] 4 19:05:31 Chronic low back pain 910485262 Active Not Available [facility] 4 19:05:31 Hypertensive disorder 60688907 Active Not Available [facility] 4 19:05:31 Large prostate 203948134 Active Not Available [facility] 4 19:05:31 Multiple nodules of lung 271006050 Active Not Available [facility] 4 19:05:31 Problem Notes None recorded. Procedures Surgical History None recorded. Imaging Results Imaging Date Name Status LastModified by Organization Details LastModified Time 11/18/2022 rhythm ECG, 1-3 leads; with interpretation and report (PROC) completed [facility] ([employer]) [address] [place], [address], 02/18/2023 10:01:44 03/02/2024 CT, chest, w/o contrast completed [facility] [address] [place], [address], 03/16/2024 11:15:03 07/08/2024 imaging/diagnostic result active [facility] [address], [place], [address], 07/08/2024 15:04:34 Procedure Notes None recorded. Medical Equipment None Reported. Allergies Allergen ID Allergen Name Allergen Category Reaction Reaction Severity Criticality Documentation Date Start Date Code Code System Note Provider Name and Address Organization Details Recorded Time 71030 Substance with sulfonami de structure and antibacte rial mechanism of action (substanc e) medicatio n rash mild low 08/10/2014 18943 8003 SNOMED Not Available Not Available Not Available Medications Name Sig Start Date Stop Date Status Note LastModified by Organization Details LastModified Time pravastat in sodium 80 mg tabs 06/27 completed Not Available Not Available Not Available methylphe nidate hydrochlo ride 20 mg tabs 03/27 completed Not Available Not Available Not Available ranitidin e hcl 150 mg tabs 09/18 completed off market Not Available Not Available Not Available mirtazapi ne 15 mg tabs 06/27 completed Not Available Not Available Not Available cyclobenz aprine hcl 10 mg tabs 01/07 completed Not Available Not Available Not Available clindamyc in hcl 300 mg caps 01/07 completed Not Available Not Available Not Available sertralin e hcl 100 mg tabs 11/15 completed Not Available Not Available Not Available omeprazol e 20 mg cpdr 03/27 completed Not Available Not Available Not Available duloxetin e hcl 30 mg cpep 11/15 completed Not Available Not Available Not Available amlodipin e besylate 5 mg tabs 11/15 completed Not Available Not Available Not Available lisinopri l 20 mg tabs 01/07 completed Not Available Not Available Not Available pravastat in sodium 20 mg tabs 01/07 completed Not Available Not Available Not Available losartan potassium 50 mg tabs 06/27 completed Not Available Not Available Not Available havrix 1440 el u/ml susp 03/27 completed Not Available Not Available Not Available losartan potassium 25 mg tabs 03/27 completed Not Available Not Available Not Available famotidin e 20 mg tabs 06/27 completed Not Available Not Available Not Available duloxetin e hydrochlo ride 30 mg cpep 06/27 completed Not Available Not Available Not Available tamsulosi n hcl 0.4 mg caps 03/27 completed Not Available Not Available Not Available tamsulosi n hydrochlo ride 0.4 mg caps 03/27 completed Not Available Not Available Not Available doxycycli ne hyclate 100 mg caps 01/07 completed Not Available Not Available Not Available methylphe nidate hcl 20 mg tabs 06/27 completed Not Available Not Available Not Available duloxetin e hydrochlo ride 60 mg cpep 03/27 completed Not Available Not Available Not Available propranol ol hcl 20 mg tabs 06/27 completed Not Available Not Available Not Available gabapenti n 300 mg caps 01/07 completed Not Available Not Available Not Available nifedipin e er 30 mg tb24 09/27 completed Not Available Not Available Not Available hydrocodo ne/acetam inophen 7.5-325 mg tabs 03/27 completed Not Available Not Available Not Available ranitidin e hydrochlo ride 150 mg tabs 03/27 completed Not Available Not Available Not Available topiramat e 200 mg tabs 01/07 completed Not Available Not Available Not Available finasteri de 5 mg tabs 03/27 completed Not Available Not Available Not Available methylphe nidate hcl 10 mg tabs 11/15 completed Not Available Not Available Not Available quetiapin e fumarate 50 mg tabs 11/15 completed Not Available Not Available Not Available sertralin e hcl 50 mg tabs 03/27 completed Not Available Not Available Not Available hydrocodo ne/acetam inophen 5-325 mgtabs 11/15 completed Not Available Not Available Not Available hydralazi ne hcl 25 mg tabs 09/27 completed Not Available Not Available Not Available trazodone hcl 50 mg tabs 11/15 completed Not Available Not Available Not Available venlafaxi ne hcl 75 mg tabs 11/15 completed Not Available Not Available Not Available duloxetin e hcl 60 mg cpep 03/27 completed Not Available Not Available Not Available penicilli n v potassium 500 mg tabs 07/15 completed Not Available Not Available Not Available quetiapin e fumarate 25 mg tabs 11/15 completed Not Available Not Available Not Available gabapenti n 600 mg tabs 03/27 completed Not Available Not Available Not Available shingrix 50 mcg susr 11/15 completed Not Available Not Available Not Available ssd 1 % crea 01/07 completed Not Available Not Available Not Available vimovo 500-20 mg tbec 03/27 completed Not Available Not Available Not Available losartan 50 mg tablet TAKE 1 TABLET BY MOUTH EVERY NIGHT AT BEDTIME 06/27 completed Not Available Not Available Not Available amoxicill in 500 mg capsule Take 1 capsule every 8 hours by oral route after meals for 10 days. 01/01 completed Not Available Not Available Not Available gabapenti n 600 mg tablet TAKE 1 TABLET [place] MOUTH FOUR TIMES A DAY 2024 active Not Available Not Available Not Avai lable venlafaxi ne 75 mg tablet 01/07 completed Not Available Not Available Not Available ammonium lactate 12 % lotion 03/25 completed Not Available Not Available Not Available hydrocodo ne 5 mg-acetam inophen 325 mg tablet 05/27 completed Not Available Not Available Not Available methylphe nidate 20 mg tablet active Not Available Not Available No t Available venlafaxi ne 25 mg tablet 03/25 completed Not Available Not Available Not Available lisinopri l 20 mg tablet TAKE 1 TABLET BY MOUTH EVERY DAY 01/07 completed Not Available Not Available Not Available sertralin e 100 mg tablet active Not Available Not Available Not Available penicilli n V potassium 500 mg tablet Take 1 tablet every 8 hours by oral route after meals for 10 days. 03/25 completed Not Available Not Available Not Available amlodipin e 5 mg tablet Take 1 tablet every day by oral route as directed for 30 days. 11/15 completed Not Available Not Available Not Available omeprazol e 40 mg capsule,d elayed release TAKE 1 CAPSULE BY MOUTH DAILY BEFORE A MEAL 12/04 completed Not Available Not Available Not Available famotidin e 20 mg tablet take 1 tablet twice a day by oral route 2024 active Not Available Not Available Not Avai lable pravastat in 80 mg tablet TAKE 1 TABLET BY MOUTH EVERY DAY AT BEDTIME. active Not Available Not Available No t Available tamsulosi n 0.4 mg capsule TAKE 1 CAPSULE BY MOUTH AT BEDTIME 2024 active Not Available Not Available Not Avai lable hydrocodo ne 7.5 mg-acetam inophen 325 mg tablet active Not Available Not Available Not Available ferrous sulfate 325 mg (65 mg iron) tablet Take 1 tablet 3 times a day by oral route before meals for 90 days. 09/27 completed Not Available Not Available Not Available tobramyci n 0.3 % eye drops INSTILL 1 DROP INTO AFFECTED EYE(S) BY OPHTHALM IC ROUTE EVERY 4 HOURS 03/25 completed Not Available Not Available Not Available ranitidin e 150 mg tablet TAKE 1 TABLET BY MOUTH TWICE A DAY 09/18 completed off market Not Available Not Available Not Available losartan 25 mg tablet TAKE 1 TABLET BY MOUTH DAILY 2024 active Not Available Not Available Not Avai lable venlafaxi ne 50 mg tablet active Not Available Not Available Not Available gabapenti n 300 mg capsule TAKE 1 CAPSULE BY MOUTH THREE TIMES DAILY 01/07 completed Not Available Not Available Not Available omeprazol e 20 mg capsule,d elayed release TAKE 1 CAPSULE BY MOUTH TWICE A DAY BEFORE MEALS 2024 active Not Available Not Available Not Avai lable pravastat in 20 mg tablet TAKE 1 TABLET EVERY EVENING 2024 active Not Available Not Available Not Avai lable ketoconaz ole 2 % topical cream 03/25 completed Not Available Not Available Not Available losartan 100 mg tablet Take 1 tablet every day by oral route as directed for 30 days. 02/02 completed Patient already taking Losartan 50 mg bid Not Available Not Available Not Available sertralin e 50 mg tablet 03/25 completed Not Available Not Available Not Available finasteri de 5 mg tablet TAKE 1 TABLET BY MOUTH DAILY 2024 active Not Available Not Available Not Avai lable naproxen 500 mg tablet Take 1 tablet every day by oral route after meals for 30 days. active Not Available Not Available No t Available amoxicill in 875 mg-potass ium clavulana te 125 mg tablet 01/01 completed Not Available Not Available Not Available esomepraz ole magnesium 20 mg capsule,d elayed release 08/15 completed Not Available Not Available Not Available duloxetin e 30 mg capsule,d elayed release 08/15 completed Not Available Not Available Not Available duloxetin e 60 mg capsule,d elayed release 08/15 completed Not Available Not Available Not Available Havrix (PF) 1,440 SKYLA unit/mL intramusc ular syringe 03/25 completed Not Available Not Available Not Available Calcium 600 + D(3) 600 mg-5 mcg (200 unit) capsule Take 1 capsule twice a day by oral route as directed for 90 days. 11/15 completed Not Available Not Available Not Available Vimovo 500 mg-20 mg tablet,im mediate and delay release 11/07 completed Not Available Not Available Not Available Farxiga 5 mg tablet Take 1 tablet(s ) every day by oral route. 2024 active Not Available Not Available Not Avai lable naloxone 4 mg/actuat ion nasal spray active Not Available Not Available Not Available Vitals Date Recorded Body height Body mass index (BMI) Body weight Heart rate Oxygen saturation Oxygen saturation in Arterial blood by Pulse oximetry Systolic blood pressure Diastolic blood pressure Provider Name and Address Organization Details Last Updated DateTime 3 167.64 cm 27.4 kg/m2 68965.9 8 g 102 /min 97 % 97 % 120 mm[Hg] 68 mm[Hg] Melany Lin MA [place] - [facility] 3 15:38:07 Date Recorded Body height Body mass index (BMI) Body weight Oxygen saturation Oxygen saturation in Arterial blood by Pulse oximetry Heart rate Systolic blood pressure Diastolic blood pressure Provider Name and Address Organization Details Last Updated DateTime 3 167.64 cm 24.8 kg/m2 09045.5 1 g 97 % 97 % 101 /min 132 mm[Hg] 89 mm[Hg] Melany Lin MA [facility] 3 16:11:36 Date Recorded Body height Heart rate Body temperature Body mass index (BMI) Body weight Systolic blood pressure Diastolic blood pressure Provider Name and Address Organization Details Last Updated DateTime 3 167.64 cm 103 /min 97.5 [degF] 24.6 kg/m2 60033.8 4 g 141 mm[Hg] 80 mm[Hg] Arcelia Barrientos [facility] 3 14:59:04 Date Recorded Body height Body mass index (BMI) Body weight Heart rate Oxygen saturation Oxygen saturation in Arterial blood by Pulse oximetry Systolic blood pressure Diastolic blood pressure Provider Name and Address Organization Details Last Updated DateTime 4 167.64 cm 25.3 kg/m2 53987 g 88 /min 98 % 98 % 142 mm[Hg] 80 mm[Hg] Claudia King MA [facility] 4 16:54:26 Date Recorded Body height Body mass index (BMI) Body weight Heart rate Oxygen saturation Oxygen saturation in Arterial blood by Pulse oximetry Systolic blood pressure Diastolic blood pressure Provider Name and Address Organization Details Last Updated DateTime 4 167.64 cm 26.5 kg/m2 06491.1 5 g 63 /min 99 % 99 % 110 mm[Hg] 62 mm[Hg] Vivi Arora MA [facility] 4 14:37:33 Social History Question Answer Notes LastModified by Organizat ion Details LastModified Time Tobacco Smoking Status Former Smoker Melany Lin MA null, [place] [facility] 08/05/2022 15:32:56 Do You Have An Advance Directive? No Information not available 08/15/2021 What Is Your Level Of Alcohol Consumption? None Information not available 11/24/2023 What Is Your Level Of Caffeine Consumption? Heavy Information not available 11/24/2023 In The 14 Days Before Symptom Onset, Have You Had Close Contact With A Laboratory-confir med COVID-19 While That Case Was Ill? No Information not available 01/18/2023 In The 14 Days Before Symptom Onset, Have You Had Close Contact With A Person Who Is Under Investigation For COVID-19 While That Person Was Ill? No Information not available 01/18/2023 Have You Been To An Area Known To Be High Risk For COVID-19? No Information not available 01/18/2023 Are You Currently Employed? No Information not available 11/24/2023 Are You Deaf Or Do You Have Serious Difficulty Hearing? Yes Left Ear Information not available 11/24/2023 What Type Of Diet Are You Following? REGULAR Information not available 11/24/2023 Are There Any Guns Present In Your Home? No Information not available 11/24/2023 What Was The Date Of Your Most Recent Tobacco Screening? 11/24/2023 Information not available 11/24/2023 What Is Your Relationship Status? Information not available 08/15/2021 Do You Use Your Seat Belt Or Car Seat Routinely? Yes Information not available 08/15/2021 Do You Have Smoke And Carbon Monoxide Detectors In Your Home? Yes Information not available 08/15/2021 Do You Feel Stressed (tense, Restless, Nervous, Or Anxious, Or Unable To Sleep At Night)? [id number] Information not available 11/24/2023 Do You Use Any Illicit Or Recreational Drugs? No Information not available 08/15/2021 Do You Use Sunscreen Routinely? No Information not available 08/15/2021 Has Tobacco Cessation Counseling Been Provided? No Information not available 08/15/2021 How Many Years Have You Smoked Tobacco? 30 [email or web address] Information not available 08/10/2014 Do You Or Have You Ever Used Any Other Forms Of Tobacco Or Nicotine? No Information not available 08/15/2021 Sex: Male Functional Status Question Answer Note LastModified by Organization D etails LastModified Time Are you able to care for yourself? Yes Information n ot available 11/24/2023 What is your exercise level? None Information not available 11/24/2023 Mental Status None recorded. Family History Nothing Reported. Medical History No medical history recorded. Immunizations Vaccine Type Date Status Note Provider Nam e and Address Organization Details Recorded Time Hep A, adult 9 completed Not Available [facility] 06/11/2023 19:05:32 COVID-19, mRNA, LNP-S, PF, 100 mcg/0.5mL dose or 50 mcg/0.25mL dose 1 completed Not Available [facility] 06/11/2023 19:05:31 COVID-19, mRNA, LNP-S, PF, 100 mcg/0.5mL dose or 50 mcg/0.25mL dose 1 completed Not Available [facility] 06/11/2023 19:05:32 Pneumococcal conjugate PCV 13 6 completed Not Available [facility] 06/11/2023 19:05:32 pneumococcal polysaccharide PPV23 8 completed Not Available [facility] 06/11/2023 19:05:32 Tdap 1 completed Not Available [facility] 06/11/2023 19:05:32 Influenza, split virus, quadrivalent, preservative 1 completed Not Available [facility] 06/11/2023 19:05:31 SARS-COV-2 (COVID-19) vaccine, UNSPECIFIED 1 completed Not Available [facility] 06/11/2023 19:05:32 SARS-COV-2 (COVID-19) vaccine, UNSPECIFIED 2 completed Not Available [facility] 06/11/2023 19:05:32 SARS-COV-2 (COVID-19) vaccine, UNSPECIFIED 2 completed Not Available [facility] 06/11/2023 19:05:32 influenza, unspecified formulation 2 completed Not Available [facility] 06/11/2023 19:05:32 SARS-COV-2 (COVID-19) vaccine, UNSPECIFIED 3 completed Not Available [facility] 06/11/2023 19:05:32 Past Encounters Encounter ID Performer Location Encounter Start Date Encounter Closed Date Diagnosis/Indication Diagnosis SNOMED-CT Code Diagnosis ICD10 Code Diagnosis Note [id number] ROSA Mckeon (Adult Med) [address] [place] [address] [id number] 0 08/10/2014 15:11:30 08/10/2014 16:12:47 Essential hypertension 32540432 Hyperlipidemia 25633734 [id number] MD Velia Beltran (Adult Med) [address] [place] [address] [id number] [id number] 12/14/2014 09:51:14 12/14/2014 13:05:31 Essential hypertension 91374693 Hyperlipidemia 40941588 Chronic back pain 941057556 Acid reflux 253480780 Chronic cough 10697090 Chronic re nal impairment 206804333 [id number] MD Velia Beltran (Adult Med) [address] [place] [address] [id number] [id number] 05/13/2015 11:00:54 05/13/2015 11:53:29 Essential hypertension 59424644 I10 Hyperlipidemia 98503713 E78.5 Chronic back pain 008086 002 R52 Acid reflux 524732845 K2 1.9 Chronic re nal impairment 534432053 N18.9 [id number] Jemima Gonsalves Velia (Adult Med) [address] [place] [address] [id number] 0 06/28/2015 11:52:37 07/01/2015 14:18:54 Chronic back pain 226873621 R52 Acid reflux 114754478 K2 1.9 Essential hypertension 15060750 I10 Hyperlipidemia 35172678 E78.5 Cellulitis of hand 98771 005 L03.119 [id number] MD Velia Beltran (Adult Med) [address] [place] [address] [id number] 0 10/04/2015 12:16:20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
--- OUTSIDE RECORDS SUMMARY | 2024-07-08 14:13 | XMS_ITS ---
Author Organization [facility] Address [address] [place] [address] Care Team Providers Care Learning And Development Consultant Name Role Phone eRbeca Garcia Primary Care Provider [phone] Allergies Allergen (clinical drug ingredient) Drug/Non Drug Allergy documented on EMR Reaction Allergy Type Onset Date Status sulfacetamide Sulfacetamide Sodium Unknown Drug Allergy Active REASON FOR VISIT Psych F/U [phone], CSSR Interpretation and Follow UP Plan Medications Medication SIG (Take, Route, Frequency, Duration) Notes Start Date End Date Status Sertraline HCl 100 MG 1 tablet Orally On ce a day for 30 days F90.0 Active Tamsulosin HCl 0.4 MG 1 capsule Orally O nce a day Active Gabapentin 600 MG 1 tablet Orally 4 times a day Active Venlafaxine HCl 50 MG 1 tablet with food Orally Twice a day for 30 days F90.0 Active Vimovo 500-20 MG 1 tablet before meal s Orally Twice a day Not-Taking Pravastatin Sodium 20 MG 1 tablet Orally Once a day Active Methylphenidate 20 mg 1 tablet Orally tw ice a day for 30 days F41.9 05/30/2024 Active Losartan Potassium 25 MG 1 tablet Orally Once a day Active Finasteride 5 MG 1 tablet Orally Once a day Active HYDROcodone-Acetaminophen 7.5-325 MG 1 tablet as needed Orally every 6 hrs Active Omeprazole 40 MG 1 capsule 30 minutes before morning meal Orally Once a day Not-Taking Social History Tobacco Use: Social History Observation Description Date Details (start date - stop date) Former Smoker NA - NA Sex Assigned At : Social History Observation Description Sex Assigned At Male Tobacco Control (Standard) Question Answer Notes Tobacco use: Former smoker Encounters Encounter Location Date Provider Diagnosis [facility] [address] [facility] [place] [address] 05/30/2024 Rebeca Garcia Major depression F32.9 Assessments Encounter Date Diagnosis (ICD Code) Assessment Notes Treatment Notes Treatment Clinical Notes Section Notes 05/30/2024 Major depression (ICD-10 - F32.9) Risk & benefits discused. Continue current treatment Plan Of Treatment Medication Medication Name Sig Start Date Stop Date Notes Sertraline HCl 100 MG 1 tablet Orally On ce a day for 30 days F90.0 Venlafaxine HCl 50 MG 1 tablet with food Orally Twice a day for 30 days F90.0 Methylphenidate 20 mg 1 tablet Orally tw ice a day for 30 days 05/30/2024 F41.9 Treatment Notes Assessment Notes Major depression Risk & benefits disc used. Continue current treatment Next Appt Details Follow Up: 2 Months, Reason: Provider Name:Rebeca Garcia, 04:00:00 PM, [address] [place] [address] , [place], [address], Progress Notes * Jimmy MCCABEDOB:1950 (73 yo M)Acc No.[id number]:05/30/2024 Patient: Jimmy ALONSO Provider: Marian Garcia :1950 A ge:73 Y S ex:Male Date:05/30/2024 Address:[address] [place], [place] [address] Subjective: * Chief Complaints: * P sych F/U [phone] Interpretation and Follow UP Plan * HPI: D epression Screening: PHQ-9 L ittle interest or pleasure in doing things M ore than half the days, F eeling down, depressed, or hopeless N ot at all, T rouble falling or staying asleep, or sleeping too much N early every day, F eeling tired or having little energy N early every day, P oor appetite or overeating N ot at all, F eeling bad about yourself or that you are a failure, or have let yourself or your family down N ot at all, Trouble concentrating on things, such as reading the newspaper or watching television N ot at all, M oving or speaking so slowly that other people could have noticed; or the opposite, being so fidgety or restless that you have been moving around a lot more than usual N ot at all, T houghts that you would be better off or of hurting yourself in some way N ot at all, T otal Score 8 , I nterpretation M ild Depression. S creening: [place] Suicide Severity Rating Scale (LF) D o you want to initiate with S creener form, 1 . Wish to be : Have you wished you were or wished you could go to sleep and not wake up? N o, 2 . Suicidal Thoughts: Have you actually had any thoughts of killing yourself? N o, 6 . Suicide Behaviour: Have you ever done anything,started to do anything, or prepared to end your life? N o, I nterpretation: L ow Risk. C SSRS Interpretation and Follow Up Plan: CSSRS Interpretation and Follow Up Plan C SSRS Screen documented using SF Y es, R isk Disposition from SF L ow - No Follow Up Plan Required, F ollow Up Plan N o Follow Up Plan required at this time.. D epression Screening PHQ9: PHQ-2 (2015 Edition) L ittle interest or pleasure in doing things? N ot at all, F eeling down, depressed, or hopeless? N ot at all, T otal Score 0 . Phone session today. Reports doing fair. M edications are working fine. Denies side effects. P t has been in same housing for 17 years. Mood has been stable. Denies mood swings. Denies hallucination or delusion. Denies SI/HI. Sleep good. Appetite good. Denies alcohol or illicit drugs. Denies depression. Anxiety is better. Medications are working well. MSE---Alert,Ox3,mood pleasant. Denies SI/HI. Denies hallucination or delusion. Denies manic or hypo manic symptoms. Denies side effects. Speech normal. Insight & judgement alright. * Medical History: * Surgical History: b rain surgery 1958tonsilectomy 05/1965dental surgeries * Hospitalization/Major Diagno stic Procedure: Garcia Smith multiple fell x3 in one week - [facility] 04/2018 * Social History: T obacco Use: T obacco Control (Standard) T obacco use: F ormer smoker. * Medications: T akingPravastatin Sodium 20 MG Tablet 1 tablet Orally Once a day Finasteride 5 MG Tablet 1 tablet Orally Once a day Losartan Potassium 25 MG Tablet 1 tablet Orally Once a day HYDROcodone-Acetaminophen 7.5-325 MG Tablet 1 tablet as needed Orally every 6 hrs Tamsulosin HCl 0.4 MG Capsule 1 capsule Orally Once a day Gabapentin 600 MG Tablet 1 tablet Orally 4 times a day Sertraline HCl 100 MG Tablet 1 tablet Orally Once a day , Notes to Pharmacist: F90.0Venlafaxine HCl 50 MG Tablet 1 tablet with food Orally Twice a day , Notes to Pharmacist: F90.0Methylphenidate 20 mg tablet 1 tablet Orally twice a day , Notes to Pharmacist: F90.0Taking Pravastatin Sodium 20 MG Tablet 1 tablet Orally Once a day Taking Finasteride 5 MG Tablet 1 tablet Orally Once a day Taking Losartan Potassium 25 MG Tablet 1 tablet Orally Once a day Taking HYDROcodone-Acetaminophen 7.5-325 MG Tablet 1 tablet as needed Orally every 6 hrs Taking Tamsulosin HCl 0.4 MG Capsule 1 capsule Orally Once a day Taking Gabapentin 600 MG Tablet 1 tablet Orally 4 times a day Taking Sertraline HCl 100 MG Tablet 1 tablet Orally Once a day , Notes to Pharmacist: F90.0Taking Venlafaxine HCl 50 MG Tablet 1 tablet with food Orally Twice a day , Notes to Pharmacist: F90.0Taking Methylphenidate 20 mg tablet 1 tablet Orally twice a day , Notes to Pharmacist: F90.0Not-TakingOmeprazole 40 MG Capsule Delayed Release 1 capsule 30 minutes before morning meal Orally Once a day Vimovo 500-20 MG Tablet Delayed Release 1 tablet before meals Orally Twice a day Not-Taking Omeprazole 40 MG Capsule Delayed Release 1 capsule 30 minutes before morning meal Orally Once a day Not-Taking Vimovo 500- 20 MG Tablet Delayed Release 1 tablet before meals Orally Twice a day * Allergies: S ulfacetamide Sodiumno[Allergies Verified] Objective: * Vitals: I nitials: sw, Pain scale:0. Assessment: * Assessment: 1. M or depression - F32.9 (Primary) Plan: * Treatment: * Procedure Codes: * Follow Up: 2 Months * * NERY OPERATOR ASSISTANT Sign off status: Completed true * Provider: Marian Garcia Date: 0 05/30/2024 Generated for Jesús mendez/Donald/Katlyn on: 0 07/08/2024 02:13 PM REFINERY OPERATOR ASSISTANT History and Physical Notes * HPI (History of Present Illness) Category Sub-Category Detail Notes Category Not es Depression Screening PHQ9 PHQ-2 (2015 Edition) Little interest or pleasure in doing things?: Not at all Phone session today. Reports doing fair. Medications are working fine. Denies side effects. Pt has been in same housing for 17 years. Mood has been stable. Denies mood swings. Denies hallucination or delusion. Denies SI/HI. Sleep good. Appetite good. Denies alcohol or illicit drugs. Denies depression. Anxiety is better. Medications are working well. MSE---Alert,Ox3,mood pleasant. Denies SI/HI. Denies hallucination or delusion. Denies manic or hypo manic symptoms. Denies side effects. Speech normal. Insight & judgement alright. Feeling down, depressed, or hopeless?: N ot at all Total Score: 0 Depression Screening PHQ-9 Little inte rest or pleasure in doing things: More than half the days Feeling down, depressed, or hopeless: No t at all Trouble falling or staying asleep, or sl eeping too much: Nearly every day Feeling tired or having little energy: N early every day Poor appetite or overeating: Not at all Feeling bad about yourself o r that you are a failure, or have let yourself or your family down: Not at all Trouble concentrating on thi ngs, such as reading the newspaper or watching television: Not at all Moving or speaking so slowly that other people could have noticed; or the opposite, being so fidgety or restless that you have been moving around a lot more than usual: Not at all Thoughts that you would be b lonny off or of hurting yourself in some way: Not at all Total Score: 8 Interpretation: Mild Depression Screening [place] Suicide Sev erity Rating Scale (LF) Do you want to initiate with: Screener form 1. Wish to be : Have you wished you were or wished you could go to sleep and not wake up?: No 2. Suicidal Thoughts: Have you actually had any thoughts of killing yourself?: No 6. Suicide Behavior Question: Have you ever done anything,started to do anything, or prepared to end your life?: No Interpretation:: Low Risk CSSRS Interpretation and Follow Up Plan CSSRS Interpretation and Follow Up Plan CSSRS Screen documented using SF: Yes Risk Disposition from SF: Low - No Follo w Up Plan Required Follow Up Plan: No Follow Up Plan requir ed at this time.
--- OUTSIDE RECORDS SUMMARY | 2024-07-08 14:13 | XMS_ITS | Clinical Summary ---
Author Organization [facility] Address [address] [place] [address] Phone Care Team Providers Care Cancellation Clerk Name Role Phone Umair Gusman MD Primary Care Provider [phone] Power Malin MD Unavailable [phone] Jhonny Staley APRN, CLINICIAN ONCOLOGY Unavailable [phone] Allergies Active Allergy Reactions Criticality Noted Date Comments Sulfa Antibiotics Rash 11/30/2023 Medications amoxicillin (AMOXIL) 500 MG Capsule 4 Active finasteride (PROSCAR) 5 MG Tablet 4 Active gabapentin (NEURONTIN) 600 MG Tablet 4 Active HYDROcodone-jose juan taminophen (NORCO) 7.5-325 MG Tablet 4 Active losartan (COZAAR) 25 MG Tablet 4 Active methylphenidate (RITALIN) 20 MG Tablet 4 Active naproxen (NAPROSYN) 500 MG Tablet 4 Active omeprazole (PriLOSEC) 20 MG CAPSULE DELAYED RELEASE 4 Active pravastatin (PRAVACHOL) 20 MG Tablet 4 Active sertraline (ZOLOFT) 100 MG Tablet 4 Active tamsulosin (FLOMAX) 0.4 MG Capsule 4 Active venlafaxine (EFFEXOR) 50 MG Tablet 4 Active nystatin-triamc inolone (MYCOLOG II) 209589-9.1 UNIT/GM-% CreamIndication s:Phimosis,Lew nitis Apply 2 times daily for 14 days. Application Site: foreskin and glans (Description and Location) 60 g 07/18/19 Active Encounters Date Type Department Care Team Description 07/04/2024 2:45 PM MEDICAL DOCTOR MD/MEDICAL DIRECTOR Office Visit [facility] [address] [place] [id number] Jhonny Staley APRN, CNP Phimosis (Primary Dx); Balanitis Discharge Disposition: Discharged to home or Selfcare 07/04/2024 Travel 06/07/2024 Telephone [facility] [address] [place] [address] Jhonny Staley APRN, SHADIA from Last 3 Months Social History Tobacco Use Types Packs/Day Years Used Date Smoking Tobacco: Never Assessed Sex and Gender Information Value Date Recorded Sex Assigned at Not on file Legal Sex Male 2:48 PM CDT Gender Identity Not on file Sexual Orientation Not on file Last Filed Vital Signs Vital Sign Reading Time Taken Comments Blood Pressure 122/73 07/04/2024 2:17 PM MEDICAL DOCTOR MD/MEDICAL DIRECTOR Pulse 85 07/04/2024 2:17 PM MEDICAL DOCTOR MD/MEDICAL DIRECTOR Temperature - - Respiratory Rate 16 07/04/2024 2:17 PM MEDICAL DOCTOR MD/MEDICAL DIRECTOR Oxygen Saturation 98% 07/04/2024 2:17 PM MEDICAL DOCTOR MD/MEDICAL DIRECTOR Inhaled Oxygen Concentration - - Weight 67.1 kg (148 lb) 07/04/2024 2:17 PM MEDICAL DOCTOR MD/MEDICAL DIRECTOR Height 167.6 cm (5' 6 ) 07/04/2024 2:17 PM MEDICAL DOCTOR MD/MEDICAL DIRECTOR Body Mass Index 23.89 07/04/2024 2:17 PM MEDICAL DOCTOR MD/MEDICAL DIRECTOR Plan of Treatment Upcoming Encounters Date Type Department Care Team (Late st Contact Info) Description 08/15/2024 2:30 PM CDT Office Visit [facility] [address] [place] [address] Jhonny Staley APRN, SHADIA [address] [place] [address] Health Maintenance Due Date Last Done Comments Hepatitis C Virus (HCV) Screening 1950 Colonoscopy 10/11/1995 Colorectal Cancer Screening 10/11/1995 Cologuard 2000 Immunochemical Fecal Occult Blood 2000 SARS-COV-2 Immunization ( season) 2024 01/27/2024, 08/19/2023, 03/08/2023, Additional history exists TdaP Immunization Completed 02/18/2021 Zoster Immunization Completed 08/13/2021, 04/02/2021, 10/28/2017 Pneumococcal Immunization (50+ years) Completed 11/09/2022, 03/08/2018, 04/01/2016, Additional history exists Respiratory Syncytial Virus (RSV) Immunization (Adult) Completed 04/26/2023 Influenza Immunization Completed , 03/08/2023, 02/11/2022, Additional history exists Hepatitis B Immunization Aged Out No longer eligible based on patient's age to complete this topic Meningococcal Immunization (ACWY) Aged Out No longer eligible based on patient's age to complete this topic Rotavirus Immunization Aged Out No lo nger eligible based on patient's age to complete this topic Procedures Procedure Name Priority Date/Time Associated Diagnosis Comments POCT UA AUTOMATED W/O MICRO Routine 07/04/2024 2:34 PM MEDICAL DOCTOR MD/MEDICAL DIRECTOR Phimosis from Last 3 Months Results * (ABNORMAL) POCT UA AUTOMATED W/O MICRO (07/04/2024 2:34 PM MEDICAL DOCTOR MD/MEDICAL DIRECTOR) POC UA SPECIFIC GRAVITY 1.010 URINE PH 6.0 5.0 - 9.0 POC URINE LEUKOCYTES Negative Negative Joseph/uL POC URINE NITRITE Negative Negative POC URINE PROTEIN Negative Negative mg/dL POC URINE GLUCOSE 250 mg/dL(A) Negative, Norm mg/dL POC URINE KETONE Negative Negative mg/dL POC URINE UROBILINOGEN Norm Norm, 0.2 E.U./dL (mg/dL), 1 E.U./dL (mg/dL) POC URINE BILIRUBIN Negative Negative mg/dL POC URINE BLOOD INSTRUMENT 50 Murphy/uL(A) Negative Mruphy/uL POC URINE COLOR Yellow POC URINE CLARITY Clear Urine 07/04/2024 2:34 PM MEDICAL DOCTOR MD/MEDICAL DIRECTOR Jhonny Staley APRN, CLINICIAN ONCOLOGY POINT OF CARE TESTING (MANUAL) Final Result from Last 3 Months Insurance MEDICARE C [employer] Care Teams Cancellation Clerk Relationship Specialty Start Date End Date Umair Gusman MD [address] [place] [id number] PCP - General Internal Medicine 11/29/23 [facility] Malin [facility] [address] [address] [address] Consulting Physician Urology 03/24/24 Jhonny Staley APRN, CLINICIAN ONCOLOGY [address] [place] [address] Nurse Practitioner Advanced Practice Nurse 07/07/24
--- OUTSIDE RECORDS SUMMARY | 2024-07-08 14:13 | XMS_ITS ---
Author Organization [facility] Address [address] [place] [address] Care Team Providers Care Design And Sales Consultant Name Role Phone Rebeca Garcia Primary Care Provider Micah Franklin Unavailable [phone] REASON FOR VISIT Methylphenidate Medications Medication SIG (Take, Route, Fr equency, Duration) Notes Start Date End Date Status Methylphenidate 20 mg 1 tablet Orally tw ice a day for 30 days F41.9 06/27/2024 Active Social History Sex Assigned At : Social History Observation Description Sex Assigned At Male Encounters Encounter Location Date Provider Diagnosis [address] [place] [address] 06/27/2024 Micah Franklin Major depression F32.9 Assessments Encounter Date Diagnosis (ICD Code) Assessment Notes Treatment Notes Treatment Clinical Notes Section Notes 06/27/2024 Major depression (ICD-10 - F32.9) Plan Of Treatment Medication Medication Name Sig Start Date Stop Date Notes Methylphenidate 20 mg 1 tablet Orally tw ice a day for 30 days 06/27/2024 F41.9 Next Appt Details Provider Name:Rebeca Garcia, 04:00:00 PM, [address] [facility] , [place], [address], Progress Notes * MCCABE, JimmyDOB:1950 (73 yo M)Acc No.[id number]:06/27/2024 Patient: Jimmy ALONSO :1950 A ge:73 Y S ex:Male Address:[address] [place] [address], [address] * Refills Refill Methylphenidate tablet, 20 mg, Orally, 60 Tablet, 1 tablet, twice a day, 30 days, Refills=0 * true * Date: Generated for Jesús mendez/Donald/Katlyn on: 0 07/08/2024 02:13 PM GLUE SPREADING MACHINE OPERATOR
--- OUTSIDE RECORDS SUMMARY | 2024-07-08 14:13 | XMS_ITS | Patient Health Record ---
Author Organization [facility] Address [address] [place] [address] Care Team Providers Care Science Center Display Builder Name Role Phone Rebeca Garcia Primary Care Provider Jesica Holder Unavailable [phone] Micah Franklin Unavailable [phone] Vanessa Burton Unavailable [phone] Hui Naqvi Unavailable [phone] Allergies Allergen (clinical drug ingredient) Drug/Non Drug Allergy documented on EMR Reaction Allergy Type Onset Date Status sulfacetamide Sulfacetamide Sodium Unknown Drug Allergy Active Reason For Referral No Information Medications Medication SIG (Take, Route, Frequency, Duration) Notes Start Date End Date Status Omeprazole 40 MG 1 capsule 30 minutes before morning meal Orally Once a day Not-Taking Pravastatin Sodium 20 MG 1 tablet Orally Once a day Active Losartan Potassium 25 MG 1 tablet Orally Once a day Active Sertraline HCl 100 MG 1 tablet Orally On ce a day for 30 days F90.0 Active Finasteride 5 MG 1 tablet Orally Once a day Active Tamsulosin HCl 0.4 MG 1 capsule Orally O nce a day Active HYDROcodone-Acetaminophen 7.5-325 MG 1 tablet as needed Orally every 6 hrs Active Gabapentin 600 MG 1 tablet Orally 4 times a day Active Venlafaxine HCl 50 MG 1 tablet with food Orally Twice a day for 30 days F90.0 Active Methylphenidate 20 mg 1 tablet Orally tw ice a day for 30 days F41.9 06/27/2024 Active Vimovo 500-20 MG 1 tablet before meal s Orally Twice a day Not-Taking Social History Tobacco Use: Social History Observation Description Date Details (start date - stop date) Former Smoker NA - NA Sex Assigned At : Social History Observation Description Sex Assigned At Male Tobacco Control (Standard) Question Answer Notes Tobacco use: Former smoker Problems Problem Type SNOMED Code ICD Code Onset Dates Problem Status W/U Status Risk Notes Problem Major depression ([id number]) Major depression (F32.9) Active confirmed Encounters Encounter Location Date Provider Diagnosis [address] [address] 08/17/2023 Arif Habib [address] [address] 08/24/2023 Arif Habib Major depression F32.[address] [address] 10/19/2023 Arif Habib Major depression F32.[address] [address] 12/14/2023 Arif Habib Major depression F32.[address] [address] 02/08/2024 Arif Habib Major depression F32.[address] [address] 04/04/2024 Arif Habib Major depression F32.[address] [address] 05/30/2024 Arif Habib Major depression F32.[address] [address] 07/28/2023 Hui Donya Major depression F32.[address] [address] 08/17/2023 Arif Habib [address] [address] 09/01/2023 Arif Habib [address] [address] 09/16/2023 Hui Donya Major depression F32.[address] [address] 11/19/2023 Arif Habib Major depression F32.[address] [address] 01/12/2024 Vanessa Burton Major depression F32.[address] [address] 02/08/2024 Arif Habib [address] [address] 03/23/2024 Arif Habib Major depression F32.[address] [address] 05/19/2024 Jesica Holder Major depression F32.[address] [address] 06/27/2024 Micah Franklin Major depression F32.9 Assessments Encounter Date Diagnosis (ICD Code) Assessment Notes Treatment Notes Treatment Clinical Notes Section Notes 10/19/2023 Major depression (ICD-10 - F32.9) Risk & benefits discused. Continue current treatment 02/08/2024 Major depression (ICD-10 - F32.9) Risk & benefits discused. Continue current treatment 11/19/2023 Major depression (ICD-10 - F32.9) 05/19/2024 Major depression (ICD-10 - F32.9) 04/04/2024 Major depression (ICD-10 - F32.9) Risk & benefits discused. Continue current treatment 03/23/2024 Major depression (ICD-10 - F32.9) 12/14/2023 Major depression (ICD-10 - F32.9) Risk & benefits discused. Continue current treatment 09/16/2023 Major depression (ICD-10 - F32.9) 06/27/2024 Major depression (ICD-10 - F32.9) 07/28/2023 Major depression (ICD-10 - F32.9) 05/30/2024 Major depression (ICD-10 - F32.9) Risk & benefits discused. Continue current treatment 01/12/2024 Major depression (ICD-10 - F32.9) 08/24/2023 Major depression (ICD-10 - F32.9) Risk & benefits discused. Continue current treatment Plan Of Treatment Next Appt Details Provider Name:Rebeca Garcia, 04:00:00 PM, [address] [facility] [address], [place], [address], Insurance Providers Payer Name Payer Address Payer Phone Subscriber Number Group Number Insured Name Patient Relationship to Insured Coverage Start Date Coverage End Date [employer] [address] [address] [place] [address] [id number] Jimmy Swanson Self - patient is the insured [address] [address] [id number] Jimmy Swanson Self - patient is the insured 2 2 MEDICARE PART A [address] [place] [address] [id number] Jimmy Swanson Self - patient is the insured 9 9 Medical (General) History Medical History History ICD Code Tonsilectomy Dental extractions 2014 hx of fractured vertebrae Acid Reflux Surgical History Surgery Date(Month/Year) brain surgery 1958 tonsilectomy 05/1965 dental surgeries Hospitalization History Reason Date(Month/Year) fell x3 in one week - [facility] 04/2018 [place] [facility]
--- NOTE | 2024-07-08 14:16 | ED_ITS ---
HPI - Weakness General Chief complaint: Weakness <Bradley Penn PA-C - Last Filed: 07/08/24 18:50> Stated complaint: weakness <BREE Kline Last Filed: 07/08/24 18:50> Time Seen by Provider: 07/08/24 14:00 <Bradley Penn PA-C - Last Filed: 07/08/24 18:50> Source: patient <BREE Kline Last Filed: 07/08/24 18:50> Mode of arrival: EMS <BREE Kline Last Filed: 07/08/24 18:50> Limitations: no limitations <BREE Kline Last Filed: 07/08/24 18:50> History of Present Illness HPI Narrative: This is a 73-year-old male who presents to the ED from [facility] for chief complaint of generalized weakness. Patient states he has felt this way for the past several days and today got worse when he had a fall. States that he was trying to go to the restroom when it felt like his legs were giving out. States that he went down to the ground and tried to crawl but was unable to get himself back up. Denies any other recent illness. Denies fevers, chills, nausea, vomiting, abdominal pain, troubles with urination, flank pain, back pain, headache, neck stiffness, cough, chest pain or shortness of breath. <Bradley Penn PA-C - Last Filed: 07/08/24 18:50> Related Data Allergies/Adverse reactions: Allergies Allergy/AdvReac Type Severity Reaction Status Date / Time Sulfa (Sulfonamide Allergy Unknown Unknown Verified 07/08/24 13:04 Antibiotics) <Bradley Penn PA-C - Last Filed: 07/08/24 18:50> Review of Systems 2 Review of Systems: All systems as dictated in HPI <Bradley Penn PA-C - Last Filed: 07/08/24 18:50> PMFSH Past Medical History Medical History: Medical History (Updated 07/08/24 @ 17:44 by Asaf Wagoner MD) HTN (hypertension) Sepsis Acute UTI <Bradley Penn PA-C - Last Filed: 07/08/24 18:50> Exam 2 Narrative: GENERAL: Appears elderly, frail. Conversational. HEAD: Normocephalic, atraumatic. EYES: PERRLA and EOMI. ENT: Nares clear, no rhinorrhea or epistaxis. Mucous membranes moist. Oropharynx without tonsillar hypertrophy exudate or other lesions. NECK: Supple. No adenopathy or masses. CHEST: No respiratory distress. Clear to auscultation. No wheezes rales or rhonchi HEART: Regular rate and rhythm. No murmur heard. Normal peripheral pulses. ABDOMEN: Mildly tender to the left lateral abdomen/left flank. Reports no right flank tenderness. Soft, otherwise nontender, nondistended, normal active bowel sounds. MSK: Normal range of motion. No edema. SKIN: Warm, dry, no rash. NEURO: Alert and oriented x4. No focal deficits. PSYCH: Normal mood and affect. <Bradley Penn PA-C - Last Filed: 07/08/24 18:50> Course DELIVERY ROOM CLERK/PA Physician Supervision For this patient encounter, I reviewed the DELIVERY ROOM CLERK or PA documentation, treatment plan, and medical decision making; and I had knle-as-joqw time with this patient. <Ronald Sethi MD - Last Filed: 07/08/24 19:35> Vital Signs Vital signs: Vital Signs Temperature 97.6 F 07/08/24 12:38 Pulse Rate 87 07/08/24 12:38 Respiratory Rate 17 07/08/24 12:38 Blood Pressure 109/77 07/08/24 12:38 Pulse Oximetry 100 07/08/24 12:38 Oxygen Delivery Room Air 07/08/24 12:38 Temperature 97.7 F 07/08/24 18:17 Pulse Rate 94 07/08/24 19:15 Respiratory Rate 14 07/08/24 19:15 Blood Pressure 124/69 07/08/24 19:15 Pulse Oximetry 94 07/08/24 19:15 Oxygen Delivery Room Air 07/08/24 19:15 Oxygen Flow Rate 10 07/08/24 18:45 <Bradley Penn PA-C - Last Filed: 07/08/24 18:50> Vital Signs Temperature 97.6 F 07/08/24 12:38 Pulse Rate 87 02/15/25 12:38 Respiratory Rate 17 07/08/24 12:38 Blood Pressure 109/77 07/08/24 12:38 Pulse Oximetry 100 07/08/24 12:38 Oxygen Delivery Room Air 07/08/24 12:38 Temperature 97.7 F 07/08/24 18:17 Pulse Rate 94 07/08/24 19:15 Respiratory Rate 14 07/08/24 19:15 Blood Pressure 124/69 07/08/24 19:15 Pulse Oximetry 94 07/08/24 19:15 Oxygen Delivery Room Air 07/08/24 19:15 Oxygen Flow Rate 10 07/08/24 18:45 <Ronald Sethi MD - Last Filed: 07/08/24 19:35> MDM - Weakness MDM Narrative Medical decision making narrative: This is a 73-year-old male who presents to the ED for chief complaint of generalized weakness and a fall today. Vitals are normal on arrival. On exam he has left flank tenderness. CBC shows elevated white count of 17.3. CMP remarkable for elevated creatinine of 2.51, BUN of 33. Does appear to be dehydrated. Urinalysis remarkable for 3+ blood, 3+ leuk esterase, greater than 100 whites and WBC clumps. Culture is pending. Patient started to become more tachycardic in the 130s during his stay and had a temperature of a 100? F. He was given a total of 2500 mL of normal saline and started on Rocephin. Blood cultures drawn. Lactic acid elevated 3.5. CT abdomen pelvis without contrast: IMPRESSION: Left-sided hydroureteronephrosis secondary to a 3 mm calculus at the left ureterovesicular junction. Bilateral cysts demonstrating rim calcifications for which nonemergent ultrasound follow-up versus renal mass protocol CT or MRI is recommended. Discussed the case with Dr. Ruiz, urology who would like to bring the patient to the OR due to the increasing tachycardia and fever. It does appear that the patient is becoming septic while here in the ER. Patient was kept NPO and taken to the OR. He will be accepted to the IMU under Dr. Brody after speaking with hospitalist Richard PILLAI. <Bradley Penn PA-C - Last Filed: 07/08/24 18:50> Lab Data Result diagrams: 07/08/24 13:12 07/08/24 13:12 <Bradley Penn PA-C - Last Filed: 07/08/24 18:50> Labs: Lab Results 07/08/24 07/08/24 07/08/24 Range/Units 13:12 14:15 14:49 WBC 17.3 H (4.5-10.0) K/mm3 RBC 4.70 (4.6-6.20) M/mm3 Hgb 13.6 L (14.0-18.0) g/dL Hct 40.3 L (42.0-52.0) % MCV 85.7 (80-100) fl MCH 28.9 (26-34) pg MCHC 33.7 (32-36) g/dl RDW 14.9 H (11.5-14.5) % Plt Count 234 (150-375) k/mm3 MPV 10.3 (7.4-10.4) fl Immature Gran % (Auto) 0.8 H (0-0.5) % Neut % (Auto) 86.3 H (45.5-73.1) % Lymph % (Auto) 3.6 L (18.3-44.2) % [place] % (Auto) 9.0 H (2.6-8.5) % Eos % (Auto) 0.0 (0-4.4) % Baso % (Auto) 0.3 (0.2-1.2) % Lymph # (Auto) 0.63 L (0.9-3.2) K/mm3 [place] # (Auto) 1.6 H (0.1-0.6) K/mm3 Eos # (Auto) 0.0 (0-0.3) K/mm3 Baso # (Auto) 0.1 (0.0-0.1) K/mm3 Abs Immat Gran (auto) 0.14 H (0.00-0.031) K/mm3 Absolute Neuts (auto) 14.9 H (1.3-6.7) K/mm3 Absolute Nucleated RBC 0.000 (0.0-0.012) K/mm3 Nucleated RBC % 0.0 (0.0-0.2) % Sodium 137 (137-145) mmol/L Potassium 3.9 (3.4-5.0) mmol/L Chloride 103 (98-107) mmol/L Carbon Dioxide 21 L (22-30) mmol/L Anion Gap 13 H (4-12) mmol/L BUN 33 H (9-20) mg/dL Creatinine 2.51 H (0.7-1.3) mg/dL Estim Creat Clear Calc 21 ml/min Estimated GFR 25 L (59 - ) Glucose 127 H (65-110) mg/dL Calcium 9.3 (8.4-10.2) mg/dL Total Bilirubin 0.8 (0.2-1.3) mg/dL AST 36 (17-59) U/L ALT 18 (6-50) U/L Alkaline Phosphatase 86 (38-126) U/L Total Protein 7.0 (6.3-8.2) g/dL Albumin 3.8 (3.5-5.1) g/dL Urine Color Yellow (Yellow) Urine Appearance Turbid H (Clear) Urine pH 5.5 (5.0-9.0) Ur Specific [place] 1.019 (1.001-1.035) Urine Protein 3+ H (Negative) mg/dL Urine Glucose (UA) 1+ H (Negative) mg/dL Urine Ketones Trace H (Negative) mg/dL Ur Blood (Man) 3+ H (Negative) Urine Nitrate Negative (Negative) Urine Bilirubin Negative (Negative) Urine Urobilinogen 0.2 (<2.0) mg/dL Add Ur Microanalysis Reviewed Leukocyte Esterase Rfl 3+ H (Negative) MILDRED/UL Urine RBC 11-20 H (0-2) /hpf Urine WBC >100 H (0-3) /hpf Urine WBC Clumps Present H (None) /HPF Ur Squamous Epith Cells Moderate (Few) /hpf Urine Bacteria 4+ /hpf Urine Casts 11-20 Influenza A (RT-PCR) Negative (Negative) Influenza B (RT-PCR) Negative (Negative) RSV (RT-PCR) Negative (Negative) SARS-CoV-2 RNA (RT-PCR) Negative (Negative) <Bradley Penn PA-C - Last Filed: 07/08/24 18:50> Lab Results 07/08/24 07/08/24 07/08/24 Range/Units 13:12 14:15 14:49 WBC 17.3 H (4.5-10.0) K/mm3 RBC 4.70 (4.6-6.20) M/mm3 Hgb 13.6 L (14.0-18.0) g/dL Hct 40.3 L (42.0-52.0) % MCV 85.7 (80-100) fl MCH 28.9 (26-34) pg MCHC 33.7 (32-36) g/dl RDW 14.9 H (11.5-14.5) % Plt Count 234 (150-375) k/mm3 MPV 10.3 (7.4-10.4) fl Immature Gran % (Auto) 0.8 H (0-0.5) % Neut % (Auto) 86.3 H (45.5-73.1) % Lymph % (Auto) 3.6 L (18.3-44.2) % [place] % (Auto) 9.0 H (2.6-8.5) % Eos % (Auto) 0.0 (0-4.4) % Baso % (Auto) 0.3 (0.2-1.2) % Lymph # (Auto) 0.63 L (0.9-3.2) K/mm3 [place] # (Auto) 1.6 H (0.1-0.6) K/mm3 Eos # (Auto) 0.0 (0-0.3) K/mm3 Baso # (Auto) 0.1 (0.0-0.1) K/mm3 Abs Immat Gran (auto) 0.14 H (0.00-0.031) K/mm3 Absolute Neuts (auto) 14.9 H (1.3-6.7) K/mm3 Absolute Nucleated RBC 0.000 (0.0-0.012) K/mm3 Nucleated RBC % 0.0 (0.0-0.2) % Sodium 137 (137-145) mmol/L Potassium 3.9 (3.4-5.0) mmol/L Chloride 103 (98-107) mmol/L Carbon Dioxide 21 L (22-30) mmol/L Anion Gap 13 H (4-12) mmol/L BUN 33 H (9-20) mg/dL Creatinine 2.51 H (0.7-1.3) mg/dL Estim Creat Clear Calc 21 ml/min Estimated GFR 25 L (59 - ) Glucose 127 H (65-110) mg/dL Calcium 9.3 (8.4-10.2) mg/dL Total Bilirubin 0.8 (0.2-1.3) mg/dL AST 36 (17-59) U/L ALT 18 (6-50) U/L Alkaline Phosphatase 86 (38-126) U/L Total Protein 7.0 (6.3-8.2) g/dL Albumin 3.8 (3.5-5.1) g/dL Urine Color Yellow (Yellow) Urine Appearance Turbid H (Clear) Urine pH 5.5 (5.0-9.0) Ur Specific [place] 1.019 (1.001-1.035) Urine Protein 3+ H (Negative) mg/dL Urine Glucose (UA) 1+ H (Negative) mg/dL Urine Ketones Trace H (Negative) mg/dL Ur Blood (Man) 3+ H (Negative) Urine Nitrate Negative (Negative) Urine Bilirubin Negative (Negative) Urine Urobilinogen 0.2 (<2.0) mg/dL Add Ur Microanalysis Reviewed Leukocyte Esterase Rfl 3+ H (Negative) MILDRED/UL Urine RBC 11-20 H (0-2) /hpf Urine WBC >100 H (0-3) /hpf Urine WBC Clumps Present H (None) /HPF Ur Squamous Epith Cells Moderate (Few) /hpf Urine Bacteria 4+ /hpf Urine Casts 11-20 Influenza A (RT-PCR) Negative (Negative) Influenza B (RT-PCR) Negative (Negative) RSV (RT-PCR) Negative (Negative) SARS-CoV-2 RNA (RT-PCR) Negative (Negative) <Ronald Sethi MD - Last Filed: 07/08/24 19:35> Discharge Plan Discharge Clinical Impression: Ureterolithiasis, Sepsis, Acute UTI <Bradley Penn PA-C - Last Filed: 07/08/24 18:50> Patient Disposition: Still a Patient <Bradley Penn PA-C - Last Filed: 07/08/24 18:50> Condition: Serious <Bradley Penn PA-C - Last Filed: 07/08/24 18:50>
[2024-07-08] MEDS: SODIUM CHLORIDE 0.9% IV 1,000 ML 999 ML IV CONT ×2 (14:17→14:20)
[2024-07-08 14:46] LABS: Add Urine Microscopic? YES; Appearance Urine Turbid (Clear); Bacteria Urine 4+ /hpf; Bilirubin Urine Negative (Negative); Blood Urine 3+ (Negative); Color Urine Yellow (Yellow); Glucose Urine UA 1+ mg/dL (Negative); Ketones Urine Trace mg/dL (Negative); Leukocyte Esterase Ur 3+ LEU/UL (Negative); Need Manual Microscopic Reviewed; Nitrate Urine Negative (Negative); Protein Urine 3+ mg/dL (Negative); Specific Grav Ur 1.019 (1.001-1.035); Squamous Epithelial Cell Urine Moderate /hpf (Few); Urobilinogen Urine 0.2 mg/dL (<2.0); WBC Clumps Urine Present /HPF; WBC Urine >100 /hpf (0-3); pH Urine 5.5 (5.0-9.0)
[2024-07-08 15:34] LABS: Influenza A QL RT-PCR Negative (Negative); Influenza B QL RT-PCR Negative (Negative); RSV RNA, RT-PCR Negative (Negative); SARS-CoV-2 RNA PCR Negative (Negative)
[2024-07-08] MEDS: ONDANSETRON INJ 4 MG/2 ML VIAL IV PUSH (16:10)
[2024-07-08] MEDS: HYDROmorphone HCL INJ (*CRX) 1 MG/ML SYR 0.5 MG IV PUSH (16:14)
--- OUTSIDE RECORDS SUMMARY | 2024-07-08 16:50 | XMS_ITS | Clinical Summary ---
Author Organization [facility] Address [address] [place] [address] Phone Care Team Providers Care Gas Dispatcher Name Role Phone Umair Gusman MD Primary Care Provider [phone] Power Malin MD Unavailable [phone] Jhonny Staley APRN, OSTRICH FARMER Unavailable [phone] Allergies Active Allergy Reactions Criticality Noted Date [...] Tablet 4 Active nystatin-triamc inolone (MYCOLOG II) 370222-5.1 UNIT/GM-% CreamIndication s:Phimosis,Lew nitis Apply 2 times daily for 14 days. Application Site: foreskin and glans (Description and Location) 60 g 07/18/19 Active Encounters Date Type Department Care Team Description 07/04/2024 2:45 PM E COMMERCE WEB DEVELOPER Office Visit [facility] [address] [place] [id number] Jhonny Staley APRN, CNP Phimosis (Primary Dx); Balanitis Discharge Disposition: Discharged to home or Selfcare 07/04/2024 Travel 06/07/2024 Telephone [facility] [address] [place] [address] Jhonny Staley APRN, SHADIA from [...] Comments Blood Pressure 122/73 07/04/2024 2:17 PM E COMMERCE WEB DEVELOPER Pulse 85 07/04/2024 2:17 PM E COMMERCE WEB DEVELOPER Temperature - - Respiratory Rate 16 07/04/2024 2:17 PM E COMMERCE WEB DEVELOPER Oxygen Saturation 98% 07/04/2024 2:17 PM E COMMERCE WEB DEVELOPER Inhaled Oxygen Concentration - - Weight 67.1 kg (148 lb) 07/04/2024 2:17 PM E COMMERCE WEB DEVELOPER Height 167.6 cm (5' 6 ) 07/04/2024 2:17 PM E COMMERCE WEB DEVELOPER Body Mass Index 23.89 07/04/2024 2:17 PM E COMMERCE WEB DEVELOPER Plan of Treatment Upcoming Encounters Date Type Department Care Team (Late st Contact Info) Description 08/15/2024 2:30 PM CDT Office Visit [facility] [address] [place] [address] Jhonny Staley APRN, SHADIA [address] [place] [address] Health Maintenance Due Date Last Done Comments [...] AUTOMATED W/O MICRO Routine 07/04/2024 2:34 PM E COMMERCE WEB DEVELOPER Phimosis from Last 3 Months Results * (ABNORMAL) POCT UA AUTOMATED W/O MICRO (07/04/2024 2:34 PM E COMMERCE WEB DEVELOPER) POC UA SPECIFIC GRAVITY 1.010 URINE PH [...] POC URINE BLOOD INSTRUMENT 50 Murphy/uL(A) Negative Murphy/uL POC URINE COLOR Yellow POC URINE CLARITY Clear Urine 07/04/2024 2:34 PM E COMMERCE WEB DEVELOPER Jhonny Staley APRN, OSTRICH FARMER POINT OF CARE TESTING (MANUAL) Final Result from Last 3 Months Insurance MEDICARE C [employer] Care Teams Gas Dispatcher Relationship Specialty Start Date End Date Umair Gusman MD [address] [place] [id number] PCP - General Internal Medicine 11/29/23 [facility] [address] [address] [address] Consulting Physician Urology 03/24/24 Jhonny Staley APRN, OSTRICH FARMER [address] [place] [address] Nurse Practitioner Advanced Practice Nurse 07/07/24
--- NOTE | 2024-07-08 17:05 | PM.IMHP ---
H&P: HPI History of Present Illness Date/Time: 07/08/24 17:05 Chief Complaint: Weakness Narrative: 73 y/o M presents here with generalized weakness with PMH of HTN, HLD, degenerative disc disease, BPH, chronic back pain, and major depressive disorder. The patient presents here from [facility]) via EMS for further evaluation of generalized weakness. He reports the generalized weakness has been ongoing for the past few days. However, weakness significantly worsened today causing the patient's legs to give out and patient had a ground level fall. He denies LOC or head strike. Denies headache, dizziness, or neck pain post fall. He reports he was unable to get up independently and laid on the floor for approximately 3 hours. He denies accompanying shortness of breath, cough, chills, fever, body aches, chest pain, nausea, vomiting, diarrhea, dysuria, urinary frequency, flank pain, or abdominal pain. Initial VS at presentation: 97.6? F, HR 87, RR 17, 109/77, and 100% on RA. ED workup showed: WBC 17.3, hemoglobin 13.6, creatinine 2.51 and GFR 25, glucose 127, and UA concerning for UTI. No previous lab work available for comparison. Viral PCR negative. CXR showed mild elevation of the left hemidiaphragm and no other acute cardiopulmonary disease. CT of the abdomen/pelvis showed left-sided hydroureteronephrosis secondary to a 3 mm calculus at the left ureteral vesicular junction and bilateral cyst demonstrating rim calcifications for which nonemergent ultrasound follow-up versus renal mass protocol CT or MRI is recommended. Review of Systems Review of Systems: All systems reviewed & are unremarkable except as noted in HPI and below [facility] Past Medical History Medical History (Updated 07/08/24 @ 21:50 by Marisol Zhou, REPROGRAPHICS TECHNICIAN) Kidney stone BPH (benign prostatic hyperplasia) Major depressive disorder Chronic back pain HLD (hyperlipidemia) Degenerative disc disease HTN (hypertension) Family History Family History (Updated 07/08/24 @ 21:34 by Roderick Rodriguez RN) Father Heart attack Grandparent Heart attack Sibling Colon cancer Meds Home Medications and Allergies Allergies Allergy/AdvReac Type Severity Reaction Status Date / Time Sulfa (Sulfonamide Allergy Unknown Unknown Verified 07/08/24 13:04 Antibiotics) Vital Signs Vital Signs - 24 hr 07/08/24 12:38 07/08/24 13:04 07/08/24 14:12 Temperature 97.6 F Pulse Rate 87 87 85 Respiratory Rate 17 11 L Blood Pressure 109/77 Pulse Oximetry 100 99 Oxygen Delivery Room Air 07/08/24 14:13 07/08/24 14:39 07/08/24 14:45 Temperature Pulse Rate 79 75 75 Respiratory Rate 12 10 L 12 Blood Pressure 105/70 126/67 Pulse Oximetry 99 100 100 Oxygen Delivery 07/08/24 14:46 07/08/24 15:00 07/08/24 15:01 Temperature 100 F H Pulse Rate 74 76 78 Respiratory Rate 13 14 15 Blood Pressure 119/68 Pulse Oximetry 100 100 100 Oxygen Delivery 07/08/24 15:15 07/08/24 15:16 07/08/24 15:30 Temperature Pulse Rate 77 76 79 Respiratory Rate 13 14 24 H Blood Pressure 137/66 130/75 Pulse Oximetry 100 Oxygen Delivery 07/08/24 15:31 07/08/24 15:31 07/08/24 15:45 Temperature Pulse Rate 78 82 82 Respiratory Rate 19 22 H 15 Blood Pressure 130/75 142/74 H Pulse Oximetry 100 98 Oxygen Delivery 07/08/24 15:46 07/08/24 16:00 07/08/24 16:15 Temperature Pulse Rate 84 103 H 130 H Respiratory Rate 15 23 H 28 H Blood Pressure 161/124 H Pulse Oximetry Oxygen Delivery 07/08/24 16:16 07/08/24 16:30 07/08/24 16:31 Temperature Pulse Rate 131 H 132 H 132 H Respiratory Rate 21 H 30 H 28 H Blood Pressure 172/114 H Pulse Oximetry Oxygen Delivery 07/08/24 17:02 Temperature Pulse Rate 118 H Respiratory Rate 13 Blood Pressure 144/77 H Pulse Oximetry 96 Oxygen Delivery Exam Narrative: abdomen fine. fine. Const: General: comfortable and no acute distress Other: , male, nontoxic appearance HENMT: Face/Nose/Sinus: Normal nares present Mouth: Yes moist mucous membranes Eyes: General: appearance normal, both eyes and all related structures Sclera: sclerae normal Pupils: Equal, round and reactive pupils present EOM: EOMs intact bilaterally Resp: Effort & Inspection: normal respiratory effort Auscultation: clear to auscultation bilaterally Cardio: Rate: regular rate Rhythm: regular rhythm Other: S1-S2 present without murmur, rub, ectopy GI: Other: Abdomen soft, nondistended, nontender. Normoactive bowel sounds in all quadrants. Urinary Catheter: Urinary Catheter: patent and draining Skin: General skin exam: normal color and no rashes or lesions noted Wounds: no wounds Neuro: Speech: normal speech Motor exam (neuro): 5/5 motor strength present throughout Sensory Exam: normal sensation Other: A&O x4 Extrem: General: normal to inspection Psych: Mental Status: mental status grossly normal Affect: Anxious affect present Other: Good insight and judgment. H&P: Results Labs Labs: Short CBC 07/08/24 Range/Units 13:12 WBC 17.3 H (4.5-10.0) K/mm3 Hgb 13.6 L (14.0-18.0) g/dL Hct 40.3 L (42.0-52.0) % Plt Count 234 (150-375) k/mm3 BMP 07/08/24 13:12 Sodium 137 Potassium 3.9 Chloride 103 Carbon Dioxide 21 L BUN 33 H Creatinine 2.51 H Glucose 127 H Calcium 9.3 Liver Function 07/08/24 Range/Units 13:12 Total Bilirubin 0.8 (0.2-1.3) mg/dL AST 36 (17-59) U/L ALT 18 (6-50) U/L Alkaline Phosphatase 86 (38-126) U/L Albumin 3.8 (3.5-5.1) g/dL Urine 07/08/24 Range/Units 14:15 Urine Color Yellow (Yellow) Urine Appearance Turbid H (Clear) Urine pH 5.5 (5.0-9.0) Ur Specific [place] 1.019 (1.001-1.035) Urine Protein 3+ H (Negative) mg/dL Urine Glucose (UA) 1+ H (Negative) mg/dL Assessment and Plan Assessment and plan (1) Sepsis: Qualifiers: Acute renal failure type: unspecified Sepsis acute organ dysfunction status: with acute organ dysfunction Sepsis type: sepsis due to unspecified organism Severe sepsis acute organ dysfunction type: acute renal failure Severe sepsis shock status: without septic shock Qualified Code(s): A41.9 - Sepsis, unspecified organism; R65.20 - Severe sepsis without septic shock; N17.9 - Acute kidney failure, unspecified Code(s): A41.9 - Sepsis, unspecified organism Status: Acute Assessment and Plan: - meets SIRS criteria: HR, WBC - lactic acid: 3.5-> 1.4 - 30 mL/kg = 1.8 L. 2L bolus given in ED - suspected source: UTI, septic stone - started on ceftriaxone on 07/08 - blood cultures drawn on 07/08, follow - CXR: Mild elevation of left hemidiaphragm. No other acute cardiopulmonary disease. - monitor hemodynamic stability (2) Ureterolithiasis: Code(s): N20.1 - Calculus of ureter Status: Acute Assessment and Plan: - CT abdomen/pelvis: Left-sided hydroureteronephrosis secondary to a 3 mm calculus at the left ureterovesicular junction. Bilateral cysts demonstrating rim calcifications for which nonemergent ultrasound follow-up versus renal mass protocol CT or MRI is recommended. - urology consulted, awaiting formal recs plan for OR this evening for cystoscopy/stent will nee definitive treatment outpatient - monitor hemodynamic stability (3) CHANCE (acute kidney injury): Code(s): N17.9 - Acute kidney failure, unspecified Status: Acute Assessment and Plan: - creatinine 2.51 and GFR 25, no previous available for comparison - trial IV fluids and antibiotics over the next 24 hours as well as stenting, if worsening renal function or no improvement consider Nephrology consultation/further workup - IV fluids: 2L bolus -> 125 mL/hr - monitor I&Os - trend renal function - trend electrolytes, correct as needed (4) Acute UTI: Code(s): N39.0 - Urinary tract infection, site not specified Status: Acute Assessment and Plan: - UA: Turbid, 3+ protein, 1+ glucose, trace ketones, 3+ blood, 3+ leuks, 11-20 RBC, greater than 100 WBC, WBC clumps present, moderate epithelial cells, 4+ bacteria. - UC pending, follow - no previous micro available for review - started on Ceftriaxone on 07/08 (5) HTN (hypertension): Qualifiers: Hypertension type: primary hypertension Qualified Code(s): I10 - Essential (primary) hypertension Code(s): I10 - Essential (primary) hypertension Status: Acute Assessment and Plan: - chronic, currently 99/62 - hold home medications, resume when appropriate - monitor Plan Bedside RN called chest not for patient's medication list. They notified the bedside RN that the patient had an eviction notice. Care coordination consulted for discharge planning. Diet: NPO -> heart healthy GI Prophylaxis: Not currently indicated DVT Prophylaxis: SCDs Lines: Peripheral Code Status: Full code Quality VTE Prophylaxis VTE prophylaxis: mechanical ordered Hospitalist MIPS Advance Care Plan I have confirmed that the patient's Advanced Care Plan is present, code status is documented, or surrogate decision maker is listed in patient medical record.: Yes Medication Reconciliation I have utilized all available resources to obtain, update and review the patients current medications (includes all prescriptions, OTC, herbals, cannabis, and nutritional supplements).: Yes
[2024-07-08 17:20] LABS: Lactic Acid Reflex 3.5 mmol/L (0.7-2.0)
[2024-07-08] MEDS: SODIUM CHLORIDE 0.9% IV 500 ML 999 ML IV CONT (17:29)
--- NOTE | 2024-07-08 17:43 | WPDANESEPPF ---
Anes - Initial Pre Proc Eval Procedure: Operation Date: 07/08/24 18:00 Proposed Procedures p Cystoscopy with Left Ureteral Stent Placement(Left) - Rachna Ruiz MD Date/Time: 07/08/24 17:43 Surgeon: Rachna Ruiz MD Pre Op Diagnosis: weakness Patient Data Age: 73 Gender: M Height: 1.68 m Weight: 62.3 kg Last Vital Signs Temp 37.7 C H 07/08/24 15:01 Pulse 118 H 07/08/24 17:02 Resp 13 07/08/24 17:02 BP 144/77 H 07/08/24 17:02 Pulse Ox 96 07/08/24 17:02 O2 Del Method Room Air 07/08/24 12:38 Allergies Allergy/AdvReac Type Severity Reaction Status Date / Time Sulfa (Sulfonamide Allergy Unknown Unknown Verified 07/08/24 13:04 Antibiotics) Laboratory Tests 07/08/24 07/08/24 07/08/24 13:12 14:15 14:49 WBC 17.3 H K/mm3 (4.5-10.0) RBC 4.70 M/mm3 (4.6-6.20) Hgb 13.6 L g/dL (14.0-18.0) Hct 40.3 L % (42.0-52.0) MCV 85.7 fl (80-100) MCH 28.9 pg (26-34) MCHC 33.7 g/dl (32-36) RDW 14.9 H % (11.5-14.5) Plt Count 234 k/mm3 (150-375) MPV 10.3 fl (7.4-10.4) Immature Gran % (Auto) 0.8 H % (0-0.5) Neut % (Auto) 86.3 H % (45.5-73.1) Lymph % (Auto) 3.6 L % (18.3-44.2) [place] % (Auto) 9.0 H % (2.6-8.5) Eos % (Auto) 0.0 % (0-4.4) Baso % (Auto) 0.3 % (0.2-1.2) Lymph # (Auto) 0.63 L K/mm3 (0.9-3.2) [place] # (Auto) 1.6 H K/mm3 (0.1-0.6) Eos # (Auto) 0.0 K/mm3 (0-0.3) Baso # (Auto) 0.1 K/mm3 (0.0-0.1) Abs Immat Gran (auto) 0.14 H K/mm3 (0.00-0.031) Absolute Neuts (auto) 14.9 H K/mm3 (1.3-6.7) Absolute Nucleated RBC 0.000 K/mm3 (0.0-0.012) Nucleated RBC % 0.0 % (0.0-0.2) Sodium 137 mmol/L (137-145) Potassium 3.9 mmol/L (3.4-5.0) Chloride 103 mmol/L (98-107) Carbon Dioxide 21 L mmol/L (22-30) Anion Gap 13 H mmol/L (4-12) BUN 33 H mg/dL (9-20) Creatinine 2.51 H mg/dL (0.7-1.3) Estim Creat Clear Calc 21 ml/min Estimated GFR 25 L (59 - ) Glucose 127 H mg/dL (65-110) Lactic Acid Calcium 9.3 mg/dL (8.4-10.2) Total Bilirubin 0.8 mg/dL (0.2-1.3) AST 36 U/L (17-59) ALT 18 U/L (6-50) Alkaline Phosphatase 86 U/L (38-126) Total Protein 7.0 g/dL (6.3-8.2) Albumin 3.8 g/dL (3.5-5.1) Urine Color Yellow (Yellow) Urine Appearance Turbid H (Clear) Urine pH 5.5 (5.0-9.0) Ur Specific [place] 1.019 (1.001-1.035) Urine Protein 3+ H mg/dL (Negative) Urine Glucose (UA) 1+ H mg/dL (Negative) Urine Ketones Trace H mg/dL (Negative) Ur Blood (Man) 3+ H (Negative) Urine Nitrate Negative (Negative) Urine Bilirubin Negative (Negative) Urine Urobilinogen 0.2 mg/dL (<2.0) Add Ur Microanalysis Reviewed Leukocyte Esterase Rfl 3+ H MILDRED/UL (Negative) Urine RBC 11-20 H /hpf (0-2) Urine WBC >100 H /hpf (0-3) Urine WBC Clumps Present H /HPF (None) Ur Squamous Epith Cells Moderate /hpf (Few) Urine Bacteria 4+ /hpf Urine Casts 11-20 Influenza A (RT-PCR) Negative (Negative) Influenza B (RT-PCR) Negative (Negative) RSV (RT-PCR) Negative (Negative) SARS-CoV-2 RNA (RT-PCR) Negative (Negative) 07/08/24 17:04 WBC RBC Hgb Hct MCV MCH MCHC RDW Plt Count MPV Immature Gran % (Auto) Neut % (Auto) Lymph % (Auto) [place] % (Auto) Eos % (Auto) Baso % (Auto) Lymph # (Auto) [place] # (Auto) Eos # (Auto) Baso # (Auto) Abs Immat Gran (auto) Absolute Neuts (auto) Absolute Nucleated RBC Nucleated RBC % Sodium Potassium Chloride Carbon Dioxide Anion Gap BUN Creatinine Estim Creat Clear Calc Estimated GFR Glucose Lactic Acid 3.5 H mmol/L (0.7-2.0) Calcium Total Bilirubin AST ALT Alkaline Phosphatase Total Protein Albumin Urine Color Urine Appearance Urine pH Ur Specific [place] Urine Protein Urine Glucose (UA) Urine Ketones Ur Blood (Man) Urine Nitrate Urine Bilirubin Urine Urobilinogen Add Ur Microanalysis Leukocyte Esterase Rfl Urine RBC Urine WBC Urine WBC Clumps Ur Squamous Epith Cells Urine Bacteria Urine Casts Influenza A (RT-PCR) Influenza B (RT-PCR) RSV (RT-PCR) SARS-CoV-2 RNA (RT-PCR) Patient hx anesthesia problems: none Family hx anesthesia problems: none Results Review: All pre-operative results and documents have been reviewed as part of the pre-operative evaluation. [facility] Past Medical History Medical History (Updated 07/08/24 @ 17:44 by Asaf Wagoner MD) HTN (hypertension) Sepsis Acute UTI Anes - Eval Final PreProcedure Day of Procedure 07/08/24 17:43 Patient weight: normal Heart: regular rate and rhythm Lungs: clear to auscultation Airway: Mallampati scale class II Neurological: alert and oriented Last oral intake: >/= 8 hours ASA classification: III Emergent: yes Anesthetic plan: proceed Anesthesia type and monitoring: general LMA and standard monitoring Results Review: All pre-operative results and documents have been reviewed as part of the pre-operative evaluation. Informed Consent: The patient's anesthetic plan and its attendant risks and benefits were discussed with the patient/family/POA. Questions were solicited and answers provided to the satisfaction of the patient/family/POA.
--- NOTE | 2024-07-08 17:49 | P.CONUR_ITS ---
Assessment and Plan Assessment and plan (1) Ureterolithiasis: Code(s): N20.1 - Calculus of ureter Status: Acute (2) CHANCE (acute kidney injury): Code(s): N17.9 - Acute kidney failure, unspecified Status: Acute Plan 73 yr old male presenting with obstructing left distal ureteral stone and UTI with concerns for urosepsis - We discussed proceeding to OR today for cystoscopy and left stent placement. He understands he will need definitive stone surgery once the acute infection resolves. He understands the risks of the procedure today including but not limited to bleeding, infection, damage to the urinary tract, stent irritation and risks of anesthesia. He elects to proceed - continue broad-spectrum abx - strain all urine Urology Consult Note HPI Date Seen: 07/08/24 Requesting Physician: Rachna Ruiz MD Primary Care Provider: Deshawn LrMD Consult Narrative Narrative: Jimmy Swanson is a 73 year old male presents to the ER with generalized weakness and after a fall. As part of the evaluation in the ER, he was found to have an obstructing left UVJ stone with evidence of UTI. In the ER, he became tachycardiac and tachypneic. He notes a history of a phimosis and states recently he has been unable to retract his foreskin. Review of Systems 2 Review of Systems: All systems reviewed & are unremarkable except as noted in HPI and below (HPI) [facility] [place] Past Medical History Medical History (Updated 07/08/24 @ 17:44 by Asaf Wagoner MD) HTN (hypertension) Sepsis Acute UTI Meds Home Medications and Allergies Allergies Allergy/AdvReac Type Severity Reaction Status Date / Time Sulfa (Sulfonamide Allergy Unknown Unknown Verified 07/08/24 13:04 Antibiotics) Vital Signs Vital Signs - 24 hr 07/08/24 12:38 07/08/24 13:04 07/08/24 14:12 Temperature 36.4 C Pulse Rate 87 87 85 Respiratory Rate 17 11 L Blood Pressure 109/77 Pulse Oximetry 100 99 Oxygen Delivery Room Air 07/08/24 14:13 07/08/24 14:39 07/08/24 14:45 Temperature Pulse Rate 79 75 75 Respiratory Rate 12 10 L 12 Blood Pressure 105/70 126/67 Pulse Oximetry 99 100 100 Oxygen Delivery 07/08/24 14:46 07/08/24 15:00 07/08/24 15:01 Temperature 37.7 C H Pulse Rate 74 76 78 Respiratory Rate 13 14 15 Blood Pressure 119/68 Pulse Oximetry 100 100 100 Oxygen Delivery 07/08/24 15:15 07/08/24 15:16 07/08/24 15:30 Temperature Pulse Rate 77 76 79 Respiratory Rate 13 14 24 H Blood Pressure 137/66 130/75 Pulse Oximetry 100 Oxygen Delivery 07/08/24 15:31 07/08/24 15:31 07/08/24 15:45 Temperature Pulse Rate 78 82 82 Respiratory Rate 19 22 H 15 Blood Pressure 130/75 142/74 H Pulse Oximetry 100 98 Oxygen Delivery 07/08/24 15:46 07/08/24 16:00 07/08/24 16:15 Temperature Pulse Rate 84 103 H 130 H Respiratory Rate 15 23 H 28 H Blood Pressure 161/124 H Pulse Oximetry Oxygen Delivery 07/08/24 16:16 07/08/24 16:30 07/08/24 16:31 Temperature Pulse Rate 131 H 132 H 132 H Respiratory Rate 21 H 30 H 28 H Blood Pressure 172/114 H Pulse Oximetry Oxygen Delivery 07/08/24 17:02 Temperature Pulse Rate 118 H Respiratory Rate 13 Blood Pressure 144/77 H Pulse Oximetry 96 Oxygen Delivery Exam 2 Const: General: comfortable HENMT: Face/Nose/Sinus: Normal nares present Eyes: General: appearance normal, both eyes and all related structures Neck: Neck: supple Resp: Effort & Inspection: normal respiratory effort Cardio: Rate: tachycardic GI: GI Palp: Yes Soft to palpation : Other: mild L CVAT Extrem: General: normal to inspection Psych: Affect: Anxious affect present Results Labs 07/08/24 13:12 07/08/24 13:12 Labs: Short CBC 07/08/24 Range/Units 13:12 WBC 17.3 H (4.5-10.0) K/mm3 Hgb 13.6 L (14.0-18.0) g/dL Hct 40.3 L (42.0-52.0) % Plt Count 234 (150-375) k/mm3 BMP 07/08/24 13:12 Sodium 137 Potassium 3.9 Chloride 103 Carbon Dioxide 21 L BUN 33 H Creatinine 2.51 H Glucose 127 H Calcium 9.3 Liver Function 07/08/24 Range/Units 13:12 Total Bilirubin 0.8 (0.2-1.3) mg/dL AST 36 (17-59) U/L ALT 18 (6-50) U/L Alkaline Phosphatase 86 (38-126) U/L Albumin 3.8 (3.5-5.1) g/dL Urine 07/08/24 Range/Units 14:15 Urine Color Yellow (Yellow) Urine Appearance Turbid H (Clear) Urine pH 5.5 (5.0-9.0) Ur Specific [place] 1.019 (1.001-1.035) Urine Protein 3+ H (Negative) mg/dL Urine Glucose (UA) 1+ H (Negative) mg/dL Imaging My impression: 3 mm left UVJ stone with hydronephrosis
--- NOTE | 2024-07-08 17:54 | WPDHPUPDATE1 ---
History and Physical Update Update Date/Time: 07/08/24 17:54 History and Physical has been reviewed, including an updated exam of the patient. There are NO changes in the patient's condition. Risks, benefits, and alternatives have been discussed and questions answered. Patient agrees to proceed with procedure.
[2024-07-08] MEDS: LIDOCAINE 2% GEL UROJET 10 ML PKG MUCOUS MEM (18:09)
--- NOTE | 2024-07-08 18:15 | W.PM.PROC2 ---
Procedure Note - Detailed Date of Procedure 07/08/24 Pre-op Diagnosis Obstructing left ureteral stone with hydronephrosis and urosepsis Post-op Diagnosis Same Procedure Performed cystoscopy, left retrograde pyelogram and placement of left 6fr VL stent Surgeon Rachna Ruiz MD Anesthesia General (LMA) and Local Indications 73 yr old male with obstructing left distal ureteral stone with hydronephrosis and evidence of urosepsis. He elects to proceed with cystoscopy and left stent placement. He understands he will need definitive stone surgery once acute infection resolves. He understands the risks of the procedure today including but not limited to bleeding, infection, damage to urinary tract, stent irritation and risks of anesthesia. Findings trabeculated, hyperemic bladder mucosa. Purulent drainage from left UO Description of Procedure Patient was correctly identified and informed consent was obtained. He was brought to the OR and a formal timeout was performed. General anesthesia was induced via LMA. He had already received rocephin and was not due for redosing. SCDs were placed on the bilateral lower extremities for DVT prophylaxis. He was placed in dorsal lithotomy position, prepped and draped in a sterile fashion. He was noted to have a significant phimosis. I used a george clamp to open the phimosis. I was then able to advance the rigid cystoscope into the urethra. The anterior and posterior urethra were both within normal limits. I advanced the scope into the bladder. He was noted to have significant debris in the bladder. There were moderate trabeculations. The mucosa was diffusely inflammed. The left UO was intubated with a sensor wire which was advanced under fluoroscopy up into the left kidney. Purulent discharge was noted from the left UO. A 5 fr angiographic catheter was advanced over the wire up into the left kidney. A gentle retrograde pyelogram was performed. He was noted to have moderate left hydronephrosis. A 6 fr variable length stent was placed under a combination of fluoroscopic guidance and direct vision with a curl in the renal pelvis and another curl in the bladder. A 16 fr grayson was inserted with return of purulent urine. He was awaken and taken to the recovery room in a stable condition. Implants 6 fr VL stent Estimated Blood Loss 5 Drains Yes (16 fr grayson) Complications No immediate complications Condition Stable Disposition PACU
[2024-07-08] MEDS: LACTATED RINGERS 1,000 ML 30 ML IV CONT ×2 (18:17→18:41)
--- NOTE | 2024-07-08 19:17 | SUR.PHASEI ---
Gave report to RN on IMU. Pt vitals are stable and resting comfortable at this time. transporting upstairs now.
[2024-07-08] MEDS: SODIUM CHLORIDE 0.9% IV 1,000 ML 125 ML IV CONT (20:00)
[2024-07-08 20:07] LABS: Reflex Lactic Acid Yes or No Add Lactic
--- NOTE | 2024-07-08 21:29 | ADMGEN ---
This patient, Jimmy A Swanson, was admitted to IMU Room 203-01. Patient/family oriented to hospital policies and general routines including ID bracelet, bed and alarms, visiting hours, pain management, procedures, bathroom and other care routines, personal items, smoking policy, room service/diet, and visiting hours. Information on how to activate the Rapid Response Team has been discussed. Patient/Family are encouraged to report perceived risks to care and to ask questions if they do not understand what they are told or what they should do.
[2024-07-08 21:31] LABS: Lactic Acid 1.4 mmol/L (0.7-2.0)
[2024-07-08] MEDS: HYDROcodone/acetaminophen (*CRX) 5-325 MG TABLET 1 TAB PO (22:01)
[2024-07-09] VITALS (11 sets, daily range): BP systolic 98–139; BP diastolic 52–65; PULSE 57–100; RESP 12–20; TEMP 36.1–36.9; O2SAT 98–100
[2024-07-09] MEDS: HYDROcodone/acetaminophen (*CRX) 7.5-325 MG TABLET 1 TAB PO ×3 (02:13→23:21)
[2024-07-09] MEDS: SODIUM CHLORIDE 0.9% IV 1,000 ML 125 ML IV CONT ×3 (04:07→17:27)
[2024-07-09 05:08] LABS: Basophils Absolute Auto 0.1 K/mm3 (0.0-0.1); Basophils Percent Auto 0.4 % (0.2-1.2); Eosinophils Percent Auto 0.1 % (0-4.4); Hematocrit 33.6 % (42.0-52.0); Hemoglobin 10.7 g/dL (14.0-18.0); Immature Granulocyte Absolute 0.27 K/mm3 (0.00-0.031); Immature Granulocyte Percent A 1.8 % (0-0.5); Lymphocytes Absolute Auto 1.06 K/mm3 (0.9-3.2); Lymphocytes Percent Auto 7.1 % (18.3-44.2); Mean Corpuscular HGB Conc 31.8 g/dl (32-36); Mean Corpuscular Hemoglobin 28.7 pg (26-34); Mean Corpuscular Volume 90.1 fl (80-100); Mean Platelet Volume 11.1 fl (7.4-10.4); Monocytes Absolute Auto 1.3 K/mm3 (0.1-0.6); Monocytes Percent Auto 8.5 % (2.6-8.5); Neutrophils Absolute Auto 12.4 K/mm3 (1.3-6.7); Neutrophils Percent Auto 82.1 % (45.5-73.1); Platelet Count Result 178 k/mm3 (150-375); Red Blood Count 3.73 M/mm3 (4.6-6.20); Red Cell Distribution Width 15.7 % (11.5-14.5)
[2024-07-09 05:23] LABS: Alanine Aminotransferase 23 U/L (6-50); Albumin Level 2.4 g/dL (3.5-5.1); Alkaline Phosphatase 84 U/L (38-126); Anion Gap 10 mmol/L (4-12); Aspartate Amino Transferase 65 U/L (17-59); Bilirubin,Total 0.4 mg/dL (0.2-1.3); Blood Urea Nitrogen 30 mg/dL (9-20); Calcium 7.9 mg/dL (8.4-10.2); Carbon Dioxide 21 mmol/L (22-30); Chloride 107 mmol/L (98-107); Estimated CRCL calculation 27 ml/min; Estimated Glomerular Filt Rate 32; Glucose 89 mg/dL (65-110); Magnesium 1.9 mg/dL (1.6-2.3); Potassium 4.1 mmol/L (3.4-5.0); Sodium 138 mmol/L (137-145)
[2024-07-09] MEDS: VENLAFAXINE HCL 25 MG TABLET 50 MG PO ×2 (09:43→15:29)
[2024-07-09] MEDS: FINASTERIDE 5 MG TABLET PO (09:44)
[2024-07-09] MEDS: GABAPENTIN 300 MG CAPSULE 600 MG PO ×4 (09:44→20:40)
[2024-07-09] MEDS: FAMOTIDINE 20 MG TABLET PO ×2 (09:44→20:39)
[2024-07-09] MEDS: SERTRALINE HCL 50 MG TABLET 100 MG PO (09:44)
--- NOTE | 2024-07-09 11:30 | WPDUROPN2 ---
Progress Note: A&P Assessment and Plan (1) CHANCE (acute kidney injury): Code(s): N17.9 - Acute kidney failure, unspecified Status: Acute (2) Acute UTI: Code(s): N39.0 - Urinary tract infection, site not specified Status: Acute (3) Ureterolithiasis: Code(s): N20.1 - Calculus of ureter Status: Acute Plan POD#1 s/p left stent placement - clinically improving - continue IV abx; blood cx NGTD; +UA but I do not see a urine culture from ER- will send now - follow daily CBC and BMP - continue grayson for now; plan for voiding trial in the next day or so if continues to clinically improve - will need definitive stone surgery with one of my [facility] partners once infection resolves. Subjective Subjective Date/Time Seen: 07/09/24 11:30 Interval history: Doing well. Feels he is improving. Using norco for pain Review of Systems Review of Systems: All systems reviewed & are unremarkable except as noted in HPI and below (HPI) Exam Const: General: comfortable and no acute distress HENMT: Face/Nose/Sinus: Normal nares present Eyes: General: appearance normal, both eyes and all related structures Resp: Effort & Inspection: normal respiratory effort Urinary Catheter: Urinary Catheter: patent and draining (yellow urine) Objective Data Vital Signs Vital Signs: Vital Signs - 24 hr 07/08/24 12:38 07/08/24 13:04 07/08/24 14:12 Temperature 36.4 C Pulse Rate 87 87 85 Respiratory Rate 17 11 L Blood Pressure 109/77 Pulse Oximetry 100 99 Oxygen Delivery Room Air Oxygen Flow Rate 07/08/24 14:13 07/08/24 14:39 07/08/24 14:45 Temperature Pulse Rate 79 75 75 Respiratory Rate 12 10 L 12 Blood Pressure 105/70 126/67 Pulse Oximetry 99 100 100 Oxygen Delivery Oxygen Flow Rate 07/08/24 14:46 07/08/24 15:00 07/08/24 15:01 Temperature 37.7 C H Pulse Rate 74 76 78 Respiratory Rate 13 14 15 Blood Pressure 119/68 Pulse Oximetry 100 100 100 Oxygen Delivery Oxygen Flow Rate 07/08/24 15:15 07/08/24 15:16 07/08/24 15:30 Temperature Pulse Rate 77 76 79 Respiratory Rate 13 14 24 H Blood Pressure 137/66 130/75 Pulse Oximetry 100 Oxygen Delivery Oxygen Flow Rate 07/08/24 15:31 07/08/24 15:31 07/08/24 15:45 Temperature Pulse Rate 78 82 82 Respiratory Rate 19 22 H 15 Blood Pressure 130/75 142/74 H Pulse Oximetry 100 98 Oxygen Delivery Oxygen Flow Rate 07/08/24 15:46 07/08/24 16:00 07/08/24 16:15 Temperature Pulse Rate 84 103 H 130 H Respiratory Rate 15 23 H 28 H Blood Pressure 161/124 H Pulse Oximetry Oxygen Delivery Oxygen Flow Rate 07/08/24 16:16 07/08/24 16:30 07/08/24 16:31 Temperature Pulse Rate 131 H 132 H 132 H Respiratory Rate 21 H 30 H 28 H Blood Pressure 172/114 H Pulse Oximetry Oxygen Delivery Oxygen Flow Rate 07/08/24 17:02 07/08/24 18:17 07/08/24 18:30 Temperature 36.5 C Pulse Rate 118 H 98 85 Respiratory Rate 13 25 H 16 Blood Pressure 144/77 H 83/57 L 102/64 Pulse Oximetry 96 99 100 Oxygen Delivery Simple Face Mask Simple Face Mask Oxygen Flow Rate 10 10 07/08/24 18:45 07/08/24 19:00 07/08/24 19:15 Temperature Pulse Rate 89 93 94 Respiratory Rate 18 17 14 Blood Pressure 103/61 115/66 124/69 Pulse Oximetry 100 96 94 Oxygen Delivery Simple Face Mask Room Air Room Air Oxygen Flow Rate 10 07/08/24 19:55 07/08/24 20:00 07/08/24 20:00 Temperature 36.6 C Pulse Rate 92 90 Respiratory Rate 15 Blood Pressure 106/55 L Pulse Oximetry 100 100 Oxygen Delivery Nasal Cannula Oxygen Flow Rate 2 07/08/24 20:25 07/08/24 20:55 07/08/24 21:55 Temperature 36.6 C 36.8 C 36.8 C Pulse Rate 92 92 86 Respiratory Rate 15 16 16 Blood Pressure 111/66 99/62 L 108/63 Pulse Oximetry 100 100 100 Oxygen Delivery Oxygen Flow Rate 07/08/24 22:00 07/08/24 23:00 07/09/24 00:00 Temperature 36.7 C 36.9 C Pulse Rate 88 77 71 Respiratory Rate 15 15 Blood Pressure 96/53 L 103/57 L Pulse Oximetry 99 99 Oxygen Delivery Oxygen Flow Rate 07/09/24 00:00 07/09/24 00:00 07/09/24 01:00 Temperature 36.9 C Pulse Rate 74 74 Respiratory Rate 18 Blood Pressure 124/63 Pulse Oximetry 99 98 Oxygen Delivery Nasal Cannula Oxygen Flow Rate 2 07/09/24 02:00 07/09/24 04:00 07/09/24 04:00 Temperature 36.8 C Pulse Rate 65 61 Respiratory Rate 16 Blood Pressure 98/56 L Pulse Oximetry 98 98 Oxygen Delivery Nasal Cannula Oxygen Flow Rate 2 07/09/24 04:00 07/09/24 06:00 07/09/24 08:00 Temperature 36.1 C L Pulse Rate 62 62 72 Respiratory Rate 16 Blood Pressure 139/65 Pulse Oximetry 100 Oxygen Delivery Oxygen Flow Rate Intake/Output Intake/Output: Intake & Output 07/06/24 07/07/24 07/08/24 07/09/24 23:59 23:59 23:59 23:59 Intake Total 3750 2285.4 Output Total 500 550 Balance 3250 1735.4 Meds/Results Medications: Active Medications Generic Name Dose Route Start Last Admin Trade Name Freq PRN Reason Stop Dose Admin Acetaminophen 650 mg 07/08/24 17:17 Acetaminophen 325 Mg Tablet PO Q6H PRN Mild Pain (1-3) or Fever Hydrocodone Bitart/Acetaminophen 1 tab 07/08/24 22:33 07/09/24 11:10 Hydrocodone/Acetaminophen (*Crx) 7.5-325 Mg Tablet PO 1 tab Q6H PRN Administration pain 4-6 Famotidine 20 mg 07/09/24 09:00 07/09/24 09:44 Famotidine 20 Mg Tablet PO 20 mg Q12HR [facility] Administration Fentanyl Citrate 25 mcg 07/08/24 17:36 Fentanyl Citrate Inj (*Crx) 100 Mcg/2 Ml Vial IV PUSH Q2M PRN Pain Finasteride 5 mg 07/09/24 09:00 07/09/24 09:44 Finasteride 5 Mg Tablet PO 5 mg DAILY K[facility]SON Administration Gabapentin 600 mg 07/09/24 09:00 07/09/24 09:44 Gabapentin 300 Mg Capsule PO 600 mg QID K[facility] Administration Hydromorphone HCl 0.5 mg 07/08/24 17:02 Hydromorphone Hcl Inj (*Crx) 1 Mg/Ml Syr IV PUSH Q4H PRN Pain Rated 7-10 Sodium Chloride 1,000 mls @ 125 mls/hr 07/08/24 17:05 07/09/24 11:12 Normal Saline Iv IV CONT 125 mls/hr .Q8H [facility] Administration Ceftriaxone Sodium 1 gm in 50 mls @ 100 mls/hr 07/09/24 15:00 Rocephin 1 Gm/Ns 50 Ml IVPB Q24H K[facility] Lactated Ringer's 1,000 mls @ 30 mls/hr 07/08/24 17:35 07/08/24 18:41 Lr - Lactated Ringers Iv IV CONT Infused .Q24H [facility] Infusion Lactated Ringer's 1,000 mls @ 30 mls/hr 07/08/24 17:40 07/08/24 19:18 Lr - Lactated Ringers Iv IV CONT Infused .Q24H [facility] Infusion Miscellaneous Information 1 each 07/08/24 00:01 07/09/24 09:45 Order Clarification XX 08/07/24 00:00 Not Given CLARIFY REPLACED BY [facility] Non-Formulary Medication 20 mg 07/09/24 09:00 Omeprazole PO 08/08/24 08:59 BID REPLACED BY [facility] Ondansetron HCl 4 mg 07/08/24 17:02 Ondansetron Inj 4 Mg/2 Ml Vial IV PUSH Q4H PRN Nausea Pravastatin Sodium 20 mg 07/09/24 21:00 Pravastatin Sodium 20 Mg Tablet PO HS REPLACED BY [facility] Sertraline HCl 100 mg 07/09/24 09:00 07/09/24 09:44 Sertraline Hcl 50 Mg Tablet PO 100 mg DAILY REPLACED BY [facility] Administration Tamsulosin HCl 0.4 mg 07/09/24 21:00 Tamsulosin Hcl 0.4 Mg Capsule PO HS REPLACED BY [facility] Venlafaxine HCl 50 mg 07/09/24 09:00 07/09/24 09:43 Venlafaxine Hcl 25 Mg Tablet PO 50 mg BID [facility] Administration Radiology Results: ITS Impressions Chest X-Ray 07/08/24 13:57 IMPRESSION: 1. Mild elevation of left hemidiaphragm. No other acute cardiopulmonary disease. Abdomen/Pelvis CT 07/08/24 16:17 IMPRESSION: Left-sided hydroureteronephrosis secondary to a 3 mm calculus at the left ureterovesicular junction. Bilateral cysts demonstrating rim calcifications for which nonemergent ultrasound follow-up versus renal mass protocol CT or MRI is recommended. Labs Labs: Laboratory Results - last 24 hr 07/08/24 07/08/24 07/08/24 13:12 14:15 14:49 WBC 17.3 H RBC 4.70 Hgb 13.6 L Hct 40.3 L MCV 85.7 MCH 28.9 MCHC 33.7 RDW 14.9 H Plt Count 234 MPV 10.3 Immature Gran % (Auto) 0.8 H Neut % (Auto) 86.3 H Lymph % (Auto) 3.6 L [place] % (Auto) 9.0 H Eos % (Auto) 0.0 Baso % (Auto) 0.3 Lymph # (Auto) 0.63 L [place] # (Auto) 1.6 H Eos # (Auto) 0.0 Baso # (Auto) 0.1 Abs Immat Gran (auto) 0.14 H Absolute Neuts (auto) 14.9 H Absolute Nucleated RBC 0.000 Nucleated RBC % 0.0 Sodium 137 Potassium 3.9 Chloride 103 Carbon Dioxide 21 L Anion Gap 13 H BUN 33 H Creatinine 2.51 H Estim Creat Clear Calc 21 Estimated GFR 25 L Glucose 127 H Lactic Acid Calcium 9.3 Phosphorus Magnesium Total Bilirubin 0.8 AST 36 ALT 18 Alkaline Phosphatase 86 Total Protein 7.0 Albumin 3.8 Urine Color Yellow Urine Appearance Turbid H Urine pH 5.5 Ur Specific [place] 1.019 Urine Protein 3+ H Urine Glucose (UA) 1+ H Urine Ketones Trace H Ur Blood (Man) 3+ H Urine Nitrate Negative Urine Bilirubin Negative Urine Urobilinogen 0.2 Add Ur Microanalysis Reviewed Leukocyte Esterase Rfl 3+ H Urine RBC 11-20 H Urine WBC >100 H Urine WBC Clumps Present H Ur Squamous Epith Cells Moderate Urine Bacteria 4+ Urine Casts 11-20 Influenza A (RT-PCR) Negative Influenza B (RT-PCR) Negative RSV (RT-PCR) Negative SARS-CoV-2 RNA (RT-PCR) Negative 07/08/24 07/08/24 07/09/24 17:04 20:38 04:34 WBC 15.0 H RBC 3.73 L Hgb 10.7 L Hct 33.6 L MCV 90.1 D MCH 28.7 MCHC 31.8 L RDW 15.7 H Plt Count 178 MPV 11.1 H Immature Gran % (Auto) 1.8 H Neut % (Auto) 82.1 H Lymph % (Auto) 7.1 L [place] % (Auto) 8.5 Eos % (Auto) 0.1 Baso % (Auto) 0.4 Lymph # (Auto) 1.06 [place] # (Auto) 1.3 H Eos # (Auto) 0.0 Baso # (Auto) 0.1 Abs Immat Gran (auto) 0.27 H Absolute Neuts (auto) 12.4 H Absolute Nucleated RBC 0.000 Nucleated RBC % 0.0 Sodium 138 Potassium 4.1 Chloride 107 Carbon Dioxide 21 L Anion Gap 10 BUN 30 H Creatinine 2.03 H Estim Creat Clear Calc 27 Estimated GFR 32 L Glucose 89 Lactic Acid 3.5 H 1.4 Calcium 7.9 L Phosphorus 4.0 Magnesium 1.9 Total Bilirubin 0.4 AST 65 H ALT 23 Alkaline Phosphatase 84 Total Protein 5.0 L Albumin 2.4 L Urine Color Urine Appearance Urine pH Ur Specific [place] Urine Protein Urine Glucose (UA) Urine Ketones Ur Blood (Man) Urine Nitrate Urine Bilirubin Urine Urobilinogen Add Ur Microanalysis Leukocyte Esterase Rfl Urine RBC Urine WBC Urine WBC Clumps Ur Squamous Epith Cells Urine Bacteria Urine Casts Influenza A (RT-PCR) Influenza B (RT-PCR) RSV (RT-PCR) SARS-CoV-2 RNA (RT-PCR)
--- NOTE | 2024-07-09 12:19 | PM.IMPN ---
Progress Note: A&P Assessment and Plan (1) Sepsis: Qualifiers: Acute renal failure type: unspecified Sepsis acute organ dysfunction status: with acute organ dysfunction Severe sepsis acute organ dysfunction type: acute renal failure Severe sepsis shock status: without septic shock Code(s): A41.9 - Sepsis, unspecified organism Status: Acute Assessment and Plan: - meets SIRS criteria: HR, WBC - lactic acid: 3.5-> 1.4 - 30 mL/kg = 1.8 L. 2L bolus given in ED - suspected source: UTI, septic stone - started on ceftriaxone on 07/08 - blood cultures drawn on 07/08, follow - CXR: Mild elevation of left hemidiaphragm. No other acute cardiopulmonary disease. - monitor hemodynamic stability (2) Ureterolithiasis: Code(s): N20.1 - Calculus of ureter Status: Acute Assessment and Plan: - CT abdomen/pelvis: -->Left-sided hydroureteronephrosis secondary to a 3 mm calculus at the left ureterovesicular junction. Bilateral cysts demonstrating rim calcifications for which nonemergent ultrasound follow-up versus renal mass protocol CT or MRI is recommended. --> urology consulted, to OR - cystoscopy, pyelogram with left 6 F stent placed --> grayson cath placed, to remain per Urology - monitor hemodynamic stability (3) Acute UTI: Code(s): N39.0 - Urinary tract infection, site not specified Status: Acute Assessment and Plan: - UA: Turbid, 3+ protein, 1+ glucose, trace ketones, 3+ blood, 3+ leuks, 11-20 RBC, greater than 100 WBC, WBC clumps present, moderate epithelial cells, 4+ bacteria. - Urine culture is pending, follow - no previous micro available for review - started on Ceftriaxone on 07/08 (4) CHANCE (acute kidney injury): Code(s): N17.9 - Acute kidney failure, unspecified Status: Acute Assessment and Plan: - creatinine 2.51 and GFR 25, no previous available for comparison ---> 2.03 -->20. - trial IV fluids and antibiotics over the next 24 hours as well as stenting, - IV fluids: 2L bolus -> 125 mL/hr - monitor I&Os - trend renal function - trend electrolytes, correct as needed (5) HTN (hypertension): Qualifiers: Hypertension type: primary hypertension Qualified Code(s): I10 - Essential (primary) hypertension Code(s): I10 - Essential (primary) hypertension Status: Acute Assessment and Plan: - chronic, currently 99/62 - hold home medications, resume when appropriate - monitor Plan Plan Diet: heart healthy GI Prophylaxis: Not currently indicated DVT Prophylaxis: SCDs Lines: Peripheral Code Status: Full code - Discharge once stable back to [facility] Time Spent With Patient Time with patient: Greater than 35 minutes (40 minutes) Subjective Date/time seen: 07/09/24 12:19 Interval history: This is a 73 y/o M presents from [facility] ([place]) via EMS here with generalized weakness. Patient has a PMH of HTN, HLD, degenerative disc disease, BPH, chronic back pain, and major depressive disorder. patient reported the generalized weakness was ongoing for a few days prior to arrival. However, weakness significantly worsened today causing the patient's legs to give out and patient had a ground level fall. He denies LOC or head strike. Patient reported he laid himself down, fell asleep and then knocked on the wall to get attention to help him up. Patient denied headache, dizziness, or neck pain post fall. He denies accompanying shortness of breath, cough, chills, fever, body aches, chest pain, nausea, vomiting, diarrhea, dysuria, urinary frequency, flank pain, or abdominal pain. Initial VS at presentation: 97.6? F, HR 87, RR 17, 109/77, and 100% on RA. ED workup noted WBC 17.3, hemoglobin 13.6, creatinine 2.51 and GFR 25, glucose 127, and UA concerning for UTI. No previous lab work available for comparison. Viral PCR negative. CXR showed mild elevation of the left hemidiaphragm and no other acute cardiopulmonary disease. CT of the abdomen/pelvis showed left-sided hydroureteronephrosis secondary to a 3 mm calculus at the left ureteral vesicular junction and bilateral cyst demonstrating rim calcifications for which nonemergent ultrasound follow-up versus renal mass protocol CT or MRI is recommended. Dr. Rachna Ruiz Urology, assessed patient and found need for ureteral stent placement, patient was agreeable and taken to the operating room. A cystoscopy, left retrograde pyelogram and placement of left 6fr VL stent was performed. Grayson catheter was placed and purulent thick urine was noted. Urologist reported Grayson catheter should remain in place, patient needed 24 hours IV antibiotics, and was placed on the floor. This a.m. patient reports that he is feeling much better, he still feels very weak. His chronic back pain is normal for him. He denies any current distress or concerns. He states he has no nausea, vomiting or diarrhea, he has no cough, fever. He states he still feels very weak. He is continued on IV Rocephin. Review of Systems Review of Systems: All systems reviewed & are unremarkable except as noted in HPI and below Constitutional: Constitutional: Reports as per HPI and Reports no additional constitutional complaints Eyes: Eyes: Reports as per HPI and Reports no additional eye complaints ENT: Reports system reviewed and no additional complaints, except as documented Cardiovascular: Cardiovascular: Reports as per HPI and Reports no additional cardiovascular complaints Respiratory: Respiratory: Reports as per HPI and Reports no additional respiratory complaints Gastrointestinal: Gastrointestinal: Reports as per HPI and Reports no additional gastrointestinal complaints Genitourinary: Genitourinary: Reports as per HPI Musculoskeletal: Musculoskeletal: Reports no additional musculoskeletal complaints Integumentary/Breasts: Skin/Breast: Reports system reviewed and no additional complaints, except as docu Neurologic: Reports system reviewed and no additional complaints, except as documented Psychiatric: Psychiatric: Reports no additional psychiatric complaints Exam Const: General: cooperative, no acute distress, alert and awake HENMT: Head: normal to inspection and normocephalic Eyes: General: appearance normal, both eyes and all related structures Neck: Neck: normal visual inspection, full ROM and no lymphadenopathy Chest: Chest palpation & inspection: normal inspection of the chest Resp: Effort & Inspection: normal respiratory effort Auscultation: clear to auscultation bilaterally Cardio: Jugular venous distension: no JVD Palpation: normal PMI Rate: regular rate Rhythm: regular rhythm Heart sounds: S1 normal heart sound present and S2 normal heart sound present Peripheral pulses: Peripheral pulses 2+ throughout GI: Inspection: normal to inspection GI Palp: Yes Soft to palpation and Yes No hepatosplenomegaly present Auscultation: normal bowel sounds Urinary Catheter: Urinary Catheter: patent and draining and urine clear Back/Spine/Pelvis: Back: no CVA tenderness Skin: General skin exam: normal color and no rashes or lesions noted Neuro: General: oriented to person, oriented to place, oriented to time, patient oriented x3, tone normal and moves all extremities Extrem: General: normal to inspection, full ROM and capillary refill normal Psych: Appearance: grossly normal Mental Status: mental status grossly normal Objective Data Vital Signs Vital Signs: Vital Signs - 24 hr 07/08/24 12:38 07/08/24 13:04 07/08/24 14:12 Temperature 97.6 F Pulse Rate 87 87 85 Respiratory Rate 17 11 L Blood Pressure 109/77 Pulse Oximetry 100 99 Oxygen Delivery Room Air Oxygen Flow Rate 07/08/24 14:13 07/08/24 14:39 07/08/24 14:45 Temperature Pulse Rate 79 75 75 Respiratory Rate 12 10 L 12 Blood Pressure 105/70 126/67 Pulse Oximetry 99 100 100 Oxygen Delivery Oxygen Flow Rate 07/08/24 14:46 07/08/24 15:00 07/08/24 15:01 Temperature 100 F H Pulse Rate 74 76 78 Respiratory Rate 13 14 15 Blood Pressure 119/68 Pulse Oximetry 100 100 100 Oxygen Delivery Oxygen Flow Rate 07/08/24 15:15 07/08/24 15:16 07/08/24 15:30 Temperature Pulse Rate 77 76 79 Respiratory Rate 13 14 24 H Blood Pressure 137/66 130/75 Pulse Oximetry 100 Oxygen Delivery Oxygen Flow Rate 07/08/24 15:31 07/08/24 15:31 07/08/24 15:45 Temperature Pulse Rate 78 82 82 Respiratory Rate 19 22 H 15 Blood Pressure 130/75 142/74 H Pulse Oximetry 100 98 Oxygen Delivery Oxygen Flow Rate 07/08/24 15:46 07/08/24 16:00 07/08/24 16:15 Temperature Pulse Rate 84 103 H 130 H Respiratory Rate 15 23 H 28 H Blood Pressure 161/124 H Pulse Oximetry Oxygen Delivery Oxygen Flow Rate 07/08/24 16:16 07/08/24 16:30 07/08/24 16:31 Temperature Pulse Rate 131 H 132 H 132 H Respiratory Rate 21 H 30 H 28 H Blood Pressure 172/114 H Pulse Oximetry Oxygen Delivery Oxygen Flow Rate 07/08/24 17:02 07/08/24 18:17 07/08/24 18:30 Temperature 97.7 F Pulse Rate 118 H 98 85 Respiratory Rate 13 25 H 16 Blood Pressure 144/77 H 83/57 L 102/64 Pulse Oximetry 96 99 100 Oxygen Delivery Simple Face Mask Simple Face Mask Oxygen Flow Rate 10 10 07/08/24 18:45 07/08/24 19:00 07/08/24 19:15 Temperature Pulse Rate 89 93 94 Respiratory Rate 18 17 14 Blood Pressure 103/61 115/66 124/69 Pulse Oximetry 100 96 94 Oxygen Delivery Simple Face Mask Room Air Room Air Oxygen Flow Rate 10 07/08/24 19:55 07/08/24 20:00 07/08/24 20:00 Temperature 97.9 F Pulse Rate 92 90 Respiratory Rate 15 Blood Pressure 106/55 L Pulse Oximetry 100 100 Oxygen Delivery Nasal Cannula Oxygen Flow Rate 2 07/08/24 20:25 07/08/24 20:55 07/08/24 21:55 Temperature 97.8 F 98.2 F 98.3 F Pulse Rate 92 92 86 Respiratory Rate 15 16 16 Blood Pressure 111/66 99/62 L 108/63 Pulse Oximetry 100 100 100 Oxygen Delivery Oxygen Flow Rate 07/08/24 22:00 07/08/24 23:00 07/09/24 00:00 Temperature 98.1 F 98.4 F Pulse Rate 88 77 71 Respiratory Rate 15 15 Blood Pressure 96/53 L 103/57 L Pulse Oximetry 99 99 Oxygen Delivery Oxygen Flow Rate 07/09/24 00:00 07/09/24 00:00 07/09/24 01:00 Temperature 98.4 F Pulse Rate 74 74 Respiratory Rate 18 Blood Pressure 124/63 Pulse Oximetry 99 98 Oxygen Delivery Nasal Cannula Oxygen Flow Rate 2 07/09/24 02:00 07/09/24 04:00 07/09/24 04:00 Temperature 98.2 F Pulse Rate 65 61 Respiratory Rate 16 Blood Pressure 98/56 L Pulse Oximetry 98 98 Oxygen Delivery Nasal Cannula Oxygen Flow Rate 2 07/09/24 04:00 07/09/24 06:00 07/09/24 08:00 Temperature 96.9 F L Pulse Rate 62 62 72 Respiratory Rate 16 Blood Pressure 139/65 Pulse Oximetry 100 Oxygen Delivery Oxygen Flow Rate 07/09/24 08:00 07/09/24 10:00 Temperature Pulse Rate 57 L 82 Respiratory Rate Blood Pressure Pulse Oximetry Oxygen Delivery Oxygen Flow Rate Intake/Output Intake/Output: Intake & Output 07/06/24 07/07/24 07/08/24 07/09/24 23:59 23:59 23:59 23:59 Intake Total 3750 2285.4 Output Total 500 550 Balance 3250 1735.4 Meds/Results Medications: Active Medications Generic Name Dose Route Start Last Admin Trade Name Freq PRN Reason Stop Dose Admin Acetaminophen 650 mg 07/08/24 17:17 Acetaminophen 325 Mg Tablet PO Q6H PRN Mild Pain (1-3) or Fever Hydrocodone Bitart/Acetaminophen 1 tab 07/08/24 22:33 07/09/24 11:10 Hydrocodone/Acetaminophen (*Crx) 7.5-325 Mg Tablet PO 1 tab Q6H PRN Administration pain 4-6 Famotidine 20 mg 07/09/24 09:00 07/09/24 09:44 Famotidine 20 Mg Tablet PO 20 mg Q12HR KARSON Administration Fentanyl Citrate 25 mcg 07/08/24 17:36 Fentanyl Citrate Inj (*Crx) 100 Mcg/2 Ml Vial IV PUSH Q2M PRN Pain Finasteride 5 mg 07/09/24 09:00 07/09/24 09:44 Finasteride 5 Mg Tablet PO 5 mg DAILY KARSON Administration Gabapentin 600 mg 07/09/24 09:00 07/09/24 09:44 Gabapentin 300 Mg Capsule PO 600 mg QID KARSON Administration Hydromorphone HCl 0.5 mg 07/08/24 17:02 Hydromorphone Hcl Inj (*Crx) 1 Mg/Ml Syr IV PUSH Q4H PRN Pain Rated 7-10 Sodium Chloride 1,000 mls @ 125 mls/hr 07/08/24 17:05 07/09/24 11:12 Normal Saline Iv IV CONT 125 mls/hr .Q8H KARSON Administration Ceftriaxone Sodium 1 gm in 50 mls @ 100 mls/hr 07/09/24 15:00 Rocephin 1 Gm/Ns 50 Ml IVPB Q24H KARSON Lactated Ringer's 1,000 mls @ 30 mls/hr 07/08/24 17:35 07/08/24 18:41 Lr - Lactated Ringers Iv IV CONT Infused .Q24H KARSON Infusion Lactated Ringer's 1,000 mls @ 30 mls/hr 07/08/24 17:40 07/08/24 19:18 Lr - Lactated Ringers Iv IV CONT Infused .Q24H KARSON Infusion Miscellaneous Information 1 each 07/08/24 00:01 07/09/24 09:45 Order Clarification XX 08/07/24 00:00 Not Given CLARIFY [facility] Non-Formulary Medication 20 mg 07/09/24 09:00 Omeprazole PO 08/08/24 08:59 BID [facility] Ondansetron HCl 4 mg 07/08/24 17:02 Ondansetron Inj 4 Mg/2 Ml Vial IV PUSH Q4H PRN Nausea Pravastatin Sodium 20 mg 07/09/24 21:00 Pravastatin Sodium 20 Mg Tablet PO HS [facility] Sertraline HCl 100 mg 07/09/24 09:00 07/09/24 09:44 Sertraline Hcl 50 Mg Tablet PO 100 mg DAILY KARSON Administration Tamsulosin HCl 0.4 mg 07/09/24 21:00 Tamsulosin Hcl 0.4 Mg Capsule PO HS [facility] Venlafaxine HCl 50 mg 07/09/24 09:00 07/09/24 09:43 Venlafaxine Hcl 25 Mg Tablet PO 50 mg BID KARSON Administration Radiology Results: ITS Impressions Chest X-Ray 07/08/24 13:57 IMPRESSION: 1. Mild elevation of left hemidiaphragm. No other acute cardiopulmonary disease. Abdomen/Pelvis CT 07/08/24 16:17 IMPRESSION: Left-sided hydroureteronephrosis secondary to a 3 mm calculus at the left ureterovesicular junction. Bilateral cysts demonstrating rim calcifications for which nonemergent ultrasound follow-up versus renal mass protocol CT or MRI is recommended. Labs Labs: Laboratory Results - last 24 hr 07/08/24 07/08/24 07/08/24 13:12 14:15 14:49 WBC 17.3 H RBC 4.70 Hgb 13.6 L Hct 40.3 L MCV 85.7 MCH 28.9 MCHC 33.7 RDW 14.9 H Plt Count 234 MPV 10.3 Immature Gran % (Auto) 0.8 H Neut % (Auto) 86.3 H Lymph % (Auto) 3.6 L [place] % (Auto) 9.0 H Eos % (Auto) 0.0 Baso % (Auto) 0.3 Lymph # (Auto) 0.63 L [place] # (Auto) 1.6 H Eos # (Auto) 0.0 Baso # (Auto) 0.1 Abs Immat Gran (auto) 0.14 H Absolute Neuts (auto) 14.9 H Absolute Nucleated RBC 0.000 Nucleated RBC % 0.0 Sodium 137 Potassium 3.9 Chloride 103 Carbon Dioxide 21 L Anion Gap 13 H BUN 33 H Creatinine 2.51 H Estim Creat Clear Calc 21 Estimated GFR 25 L Glucose 127 H Lactic Acid Calcium 9.3 Phosphorus Magnesium Total Bilirubin 0.8 AST 36 ALT 18 Alkaline Phosphatase 86 Total Protein 7.0 Albumin 3.8 Urine Color Yellow Urine Appearance Turbid H Urine pH 5.5 Ur Specific [place] 1.019 Urine Protein 3+ H Urine Glucose (UA) 1+ H Urine Ketones Trace H Ur Blood (Man) 3+ H Urine Nitrate Negative Urine Bilirubin Negative Urine Urobilinogen 0.2 Add Ur Microanalysis Reviewed Leukocyte Esterase Rfl 3+ H Urine RBC 11-20 H Urine WBC >100 H Urine WBC Clumps Present H Ur Squamous Epith Cells Moderate Urine Bacteria 4+ Urine Casts 11-20 Influenza A (RT-PCR) Negative Influenza B (RT-PCR) Negative RSV (RT-PCR) Negative SARS-CoV-2 RNA (RT-PCR) Negative 07/08/24 07/08/24 07/09/24 17:04 20:38 04:34 WBC 15.0 H RBC 3.73 L Hgb 10.7 L Hct 33.6 L MCV 90.1 D MCH 28.7 MCHC 31.8 L RDW 15.7 H Plt Count 178 MPV 11.1 H Immature Gran % (Auto) 1.8 H Neut % (Auto) 82.1 H Lymph % (Auto) 7.1 L [place] % (Auto) 8.5 Eos % (Auto) 0.1 Baso % (Auto) 0.4 Lymph # (Auto) 1.06 [place] # (Auto) 1.3 H Eos # (Auto) 0.0 Baso # (Auto) 0.1 Abs Immat Gran (auto) 0.27 H Absolute Neuts (auto) 12.4 H Absolute Nucleated RBC 0.000 Nucleated RBC % 0.0 Sodium 138 Potassium 4.1 Chloride 107 Carbon Dioxide 21 L Anion Gap 10 BUN 30 H Creatinine 2.03 H Estim Creat Clear Calc 27 Estimated GFR 32 L Glucose 89 Lactic Acid 3.5 H 1.4 Calcium 7.9 L Phosphorus 4.0 Magnesium 1.9 Total Bilirubin 0.4 AST 65 H ALT 23 Alkaline Phosphatase 84 Total Protein 5.0 L Albumin 2.4 L Urine Color Urine Appearance Urine pH Ur Specific [place] Urine Protein Urine Glucose (UA) Urine Ketones Ur Blood (Man) Urine Nitrate Urine Bilirubin Urine Urobilinogen Add Ur Microanalysis Leukocyte Esterase Rfl Urine RBC Urine WBC Urine WBC Clumps Ur Squamous Epith Cells Urine Bacteria Urine Casts Influenza A (RT-PCR) Influenza B (RT-PCR) RSV (RT-PCR) SARS-CoV-2 RNA (RT-PCR) Hospitalist MIPS Advance Care Plan I have confirmed that the patient's Advanced Care Plan is present, code status is documented, or surrogate decision maker is listed in patient medical record.: Yes Medication Reconciliation I have utilized all available resources to obtain, update and review the patients current medications (includes all prescriptions, OTC, herbals, cannabis, and nutritional supplements).: Yes
[2024-07-09] MEDS: TAMSULOSIN HCL 0.4 MG CAPSULE PO (20:39)
[2024-07-09] MEDS: PRAVASTATIN SODIUM 20 MG TABLET PO (20:39)
[2024-07-10] VITALS (10 sets, daily range): BP systolic 124–156; BP diastolic 57–78; PULSE 76–113; RESP 18–20; TEMP 36.2–38.2; O2SAT 97–100
[2024-07-10] MEDS: HYDROcodone/acetaminophen (*CRX) 7.5-325 MG TABLET 1 TAB PO ×3 (06:40→20:34)
[2024-07-10 08:15] LABS: Basophils Percent Auto 0.4 % (0.2-1.2); Eosinophils Percent Auto 0.5 % (0-4.4); Hemoglobin 10.9 g/dL (14.0-18.0); Immature Granulocyte Absolute 0.05 K/mm3 (0.00-0.031); Immature Granulocyte Percent A 0.6 % (0-0.5); Lymphocytes Absolute Auto 0.46 K/mm3 (0.9-3.2); Lymphocytes Percent Auto 5.5 % (18.3-44.2); Mean Corpuscular HGB Conc 32.1 g/dl (32-36); Mean Corpuscular Hemoglobin 28.2 pg (26-34); Mean Corpuscular Volume 87.9 fl (80-100); Mean Platelet Volume 10.9 fl (7.4-10.4); Monocytes Absolute Auto 0.7 K/mm3 (0.1-0.6); Neutrophils Absolute Auto 7.2 K/mm3 (1.3-6.7); Platelet Count Result 204 k/mm3 (150-375); Red Blood Count 3.87 M/mm3 (4.6-6.20); Red Cell Distribution Width 15.8 % (11.5-14.5); White Blood Count 8.4 K/mm3 (4.5-10.0)
[2024-07-10 08:33] LABS: Alanine Aminotransferase 27 U/L (6-50); Albumin Level 2.6 g/dL (3.5-5.1); Alkaline Phosphatase 95 U/L (38-126); Anion Gap 11 mmol/L (4-12); Aspartate Amino Transferase 55 U/L (17-59); Bilirubin,Total 0.4 mg/dL (0.2-1.3); Blood Urea Nitrogen 28 mg/dL (9-20); Calcium 7.7 mg/dL (8.4-10.2); Carbon Dioxide 18 mmol/L (22-30); Chloride 106 mmol/L (98-107); Estimated CRCL calculation 29 ml/min; Estimated Glomerular Filt Rate 36; Glucose 86 mg/dL (65-110); Potassium 3.5 mmol/L (3.4-5.0); Sodium 135 mmol/L (137-145)
[2024-07-10] MEDS: GABAPENTIN 300 MG CAPSULE 600 MG PO ×4 (09:26→20:34)
[2024-07-10] MEDS: SERTRALINE HCL 50 MG TABLET 100 MG PO (09:26)
[2024-07-10] MEDS: VENLAFAXINE HCL 25 MG TABLET 50 MG PO ×2 (09:27→17:14)
[2024-07-10] MEDS: FAMOTIDINE 20 MG TABLET PO ×2 (09:27→20:33)
[2024-07-10] MEDS: FINASTERIDE 5 MG TABLET PO (09:27)
[2024-07-10] MEDS: SODIUM CHLORIDE 0.9% IV 1,000 ML 125 ML IV CONT (12:58)
--- NOTE | 2024-07-10 16:50 | P.PNIM_ITS ---
Progress Note: A&P Assessment and Plan (1) Sepsis: Qualifiers: Acute renal failure type: unspecified Sepsis acute organ dysfunction status: with acute organ dysfunction Severe sepsis acute organ dysfunction type: acute renal failure Severe sepsis shock status: without septic shock Code(s): A41.9 - Sepsis, unspecified organism Status: Acute Assessment and Plan: - meets SIRS criteria: HR, WBC - lactic acid: 3.5-> 1.4 - 30 mL/kg = 1.8 L. 2L bolus given in ED - suspected source: UTI, septic stone - started on ceftriaxone on 07/08 - blood cultures drawn on 07/08, follow - CXR: Mild elevation of left hemidiaphragm. No other acute cardiopulmonary disease. - monitor hemodynamic stability 07/10 * blood and urine cultures obtained and pending * blood culture showing no growth to date on preliminary read * continue Rocephin (2) Ureterolithiasis: Code(s): N20.1 - Calculus of ureter Status: Acute Assessment and Plan: - CT abdomen/pelvis: -->Left-sided hydroureteronephrosis secondary to a 3 mm calculus at the left ureterovesicular junction. Bilateral cysts demonstrating rim calcifications for which nonemergent ultrasound follow-up versus renal mass protocol CT or MRI is recommended. --> urology consulted, to OR - cystoscopy, pyelogram with left 6 F stent placed --> grayson cath placed, to remain per Urology - monitor hemodynamic stability 07/10 * urology following * status post cystoscopy pyelogram with left 6 [place] stent placed on 07/08/2024 * Grayson catheter in place, plan for voiding trial in a few days * continue tamsulosin (3) Acute UTI: Code(s): N39.0 - Urinary tract infection, site not specified Status: Acute Assessment and Plan: - UA: Turbid, 3+ protein, 1+ glucose, trace ketones, 3+ blood, 3+ leuks, 11-20 RBC, greater than 100 WBC, WBC clumps present, moderate epithelial cells, 4+ bacteria. - Urine culture is pending, follow - no previous micro available for review - started on Ceftriaxone on 07/08 07/10 * blood and urine cultures pending * continue Rocephin (4) CHANCE (acute kidney injury): Code(s): N17.9 - Acute kidney failure, unspecified Status: Acute Assessment and Plan: - creatinine 2.51 and GFR 25, no previous available for comparison ---> 2.03 -->20. - trial IV fluids and antibiotics over the next 24 hours as well as stenting, - IV fluids: 2L bolus -> 125 mL/hr - monitor I&Os - trend renal function - trend electrolytes, correct as needed 07/10 * creatinine 1.84 * continue to trend * continue to hold losartan (5) HTN (hypertension): Qualifiers: Hypertension type: primary hypertension Qualified Code(s): I10 - Essential (primary) hypertension Code(s): I10 - Essential (primary) hypertension Status: Acute Assessment and Plan: - chronic, currently / - hold home medications, resume when appropriate - monitor 07/10 * blood pressures ranging 131/57 to 148/61 * continue to hold losartan due to CHANCE * continue to monitor Time Spent With Patient Time with patient: Greater than 35 minutes Subjective Date/time seen: 07/10/24 16:50 Interval history: Interval history: this is a 73-year-old male who presented to the hospital on 07/08/2024 for evaluation of weakness. Workup in the hospital included a respiratory panel which was negative for influenza a and B, RSV, COVID. Chest x-ray showed mild elevation of the left hemidiaphragm otherwise no cardiopulmonary disease. CT of the abdomen and pelvis showed left-sided hydroureteronephrosis secondary to 3 mm calculus of the left ureteral vesicular junction and bilateral psis demonstrating rim calcification for which nonemergent ultrasound or CT would be recommended. Initial labs showed a white blood cell count of 17.3, hemoglobin 13.6, creatinine 2.51, EGFR 25. UA showing turbid urine appearance, 3+ urine protein, 1+ urine glucose, trace ketone, 3+ urine blood, 3+ leukocyte, 11-20 urine RBC, greater than 100 urine WBC, 4+ urine bacteria. Urine and blood cultures were obtained and pending. Rocephin was initiated. Urology was consulted and took patient to the OR on 07/08/2024 and performed a cystoscopy left retrograde pyelogram and placement of left ureter stent. Subjective: patient denies any fever, chills, nausea, vomiting, diarrhea, abdominal pain, chest pain, shortness a breath. Labs and imaging reviewed. Review of Systems Review of Systems: All systems reviewed & are unremarkable except as noted in HPI and below Exam Narrative: General: In no acute distress, well nourished Head: atraumatic, no encephalopathy Eyes: PERRLA, sclera clear ENT: moist mucous membranes, nasal passages clear Neck: supple, no JVD, no adenopathy, trachea midline Cardiac: Normal S1 and S2. No murmur, gallops or friction rubs, peripheral pulses intact. Respiratory: Lungs clear to auscultation, no adventitious lung sounds, currently on room air Gastrointestinal: soft, non-distended, non-tender, normoactive bowel sounds. : Grayson catheter in place Extremities: moves all extremities well, no edema Skin: clean, dry, intact. No wounds or lesions. Neuro: Alert and oriented x4, cranial nerves intact, no neuro deficits. Psych: normal mood, normal affect, interactive Objective Data Vital Signs Vital Signs: Vital Signs - 24 hr 07/09/24 18:00 07/09/24 20:00 07/10/24 00:00 Temperature 97.7 F Pulse Rate 100 78 Respiratory Rate 18 Blood Pressure 131/57 L Pulse Oximetry 100 Oxygen Delivery Room Air 07/10/24 00:00 07/10/24 04:00 07/10/24 06:00 Temperature 97.2 F L Pulse Rate 97 76 87 Respiratory Rate 18 Blood Pressure 148/61 H Pulse Oximetry 99 Oxygen Delivery 07/10/24 08:00 07/10/24 14:17 Temperature Pulse Rate Respiratory Rate Blood Pressure Pulse Oximetry Oxygen Delivery Room Air Room Air Intake/Output Intake/Output: Intake & Output 07/07/24 07/08/24 07/09/24 07/10/24 23:59 23:59 23:59 23:59 Intake Total 3750 3356.7 2476 Output Total 500 1300 700 Balance 3250 2056.7 1776 Meds/Results Medications: Active Medications Generic Name Dose Route Start Last Admin Trade Name Freq PRN Reason Stop Dose Admin Acetaminophen 650 mg 07/08/24 17:17 Acetaminophen 325 Mg Tablet PO Q6H PRN Mild Pain (1-3) or Fever Hydrocodone Bitart/Acetaminophen 1 tab 07/08/24 22:33 07/10/24 12:58 Hydrocodone/Acetaminophen (*Crx) 7.5-325 Mg Tablet PO 1 tab Q6H PRN Administration pain 4-6 Famotidine 20 mg 07/09/24 09:00 07/10/24 09:27 Famotidine 20 Mg Tablet PO 20 mg Q12HR KARSON Administration Fentanyl Citrate 25 mcg 07/08/24 17:36 Fentanyl Citrate Inj (*Crx) 100 Mcg/2 Ml Vial IV PUSH Q2M PRN Pain Finasteride 5 mg 07/09/24 09:00 07/10/24 09:27 Finasteride 5 Mg Tablet PO 5 mg DAILY KARSON Administration Gabapentin 600 mg 07/09/24 09:00 07/10/24 12:58 Gabapentin 300 Mg Capsule PO 600 mg QID KARSON Administration Hydromorphone HCl 0.5 mg 07/08/24 17:02 Hydromorphone Hcl Inj (*Crx) 1 Mg/Ml Syr IV PUSH Q4H PRN Pain Rated 7-10 Sodium Chloride 1,000 mls @ 125 mls/hr 07/08/24 17:05 07/10/24 12:58 Normal Saline Iv IV CONT 125 mls/hr .Q8H [facility] Administration Ceftriaxone Sodium 1 gm in 50 mls @ 100 mls/hr 07/09/24 15:00 07/10/24 14:32 Rocephin 1 Gm/Ns 50 Ml IVPB 100 mls/hr Q24H K[facility] Administration Lactated Ringer's 1,000 mls @ 30 mls/hr 07/08/24 17:35 07/09/24 13:29 Lr - Lactated Ringers Iv IV CONT Not Given .Q24H [facility] Lactated Ringer's 1,000 mls @ 30 mls/hr 07/08/24 17:40 07/09/24 13:30 Lr - Lactated Ringers Iv IV CONT Not Given .Q24H [facility] Miscellaneous Information 1 each 07/08/24 00:01 07/09/24 09:45 Order Clarification XX 08/07/24 00:00 Not Given CLARIFY [facility] Non-Formulary Medication 20 mg 07/09/24 09:00 Omeprazole PO 08/08/24 08:59 BID K[facility]SON Ondansetron HCl 4 mg 07/08/24 17:02 Ondansetron Inj 4 Mg/2 Ml Vial IV PUSH Q4H PRN Nausea Pravastatin Sodium 20 mg 07/09/24 21:00 07/09/24 20:39 Pravastatin Sodium 20 Mg Tablet PO 20 mg HS [facility]SON Administration Sertraline HCl 100 mg 07/09/24 09:00 07/10/24 09:26 Sertraline Hcl 50 Mg Tablet PO 100 mg DAILY [facility] Administration Tamsulosin HCl 0.4 mg 07/09/24 21:00 07/09/24 20:39 Tamsulosin Hcl 0.4 Mg Capsule PO 0.4 mg HS K[facility]SON Administration Venlafaxine HCl 50 mg 07/09/24 09:00 07/10/24 09:27 Venlafaxine Hcl 25 Mg Tablet PO 50 mg BID KARSON Administration Radiology Results: ITS Impressions Chest X-Ray 07/08/24 13:57 IMPRESSION: 1. Mild elevation of left hemidiaphragm. No other acute cardiopulmonary disease. Abdomen/Pelvis CT 07/08/24 16:17 IMPRESSION: Left-sided hydroureteronephrosis secondary to a 3 mm calculus at the left ureterovesicular junction. Bilateral cysts demonstrating rim calcifications for which nonemergent ultrasound follow-up versus renal mass protocol CT or MRI is recommended. Labs Labs: Laboratory Results - last 24 hr 07/10/24 07:22 WBC 8.4 RBC 3.87 L Hgb 10.9 L Hct 34.0 L MCV 87.9 MCH 28.2 MCHC 32.1 RDW 15.8 H Plt Count 204 MPV 10.9 H Immature Gran % (Auto) 0.6 H Neut % (Auto) 85.0 H Lymph % (Auto) 5.5 L [place] % (Auto) 8.0 Eos % (Auto) 0.5 Baso % (Auto) 0.4 Lymph # (Auto) 0.46 L [place] # (Auto) 0.7 H Eos # (Auto) 0.0 Baso # (Auto) 0.0 Abs Immat Gran (auto) 0.05 H Absolute Neuts (auto) 7.2 H Absolute Nucleated RBC 0.000 Nucleated RBC % 0.0 Sodium 135 L Potassium 3.5 Chloride 106 Carbon Dioxide 18 L Anion Gap 11 BUN 28 H Creatinine 1.84 H Estim Creat Clear Calc 29 Estimated GFR 36 L Glucose 86 Calcium 7.7 L Total Bilirubin 0.4 AST 55 ALT 27 Alkaline Phosphatase 95 Total Protein 6.0 L Albumin 2.6 L Quality VTE Prophylaxis VTE prophylaxis: mechanical ordered
[2024-07-10] MEDS: TAMSULOSIN HCL 0.4 MG CAPSULE PO (20:33)
[2024-07-10] MEDS: PRAVASTATIN SODIUM 20 MG TABLET PO (20:34)
[2024-07-11] VITALS (8 sets, daily range): BP systolic 135–178; BP diastolic 78–90; PULSE 87–115; RESP 13–19; TEMP 37.2–37.3; O2SAT 88–93
[2024-07-11] MEDS: HYDROcodone/acetaminophen (*CRX) 7.5-325 MG TABLET 1 TAB PO (06:35)
[2024-07-11 07:21] LABS: Basophils Percent Auto 0.3 % (0.2-1.2); Eosinophils Absolute Auto 0.1 K/mm3 (0-0.3); Eosinophils Percent Auto 0.8 % (0-4.4); Hematocrit 34.9 % (42.0-52.0); Hemoglobin 11.4 g/dL (14.0-18.0); Immature Granulocyte Absolute 0.04 K/mm3 (0.00-0.031); Immature Granulocyte Percent A 0.6 % (0-0.5); Lymphocytes Absolute Auto 0.62 K/mm3 (0.9-3.2); Lymphocytes Percent Auto 8.6 % (18.3-44.2); Mean Corpuscular HGB Conc 32.7 g/dl (32-36); Mean Corpuscular Hemoglobin 27.8 pg (26-34); Mean Corpuscular Volume 85.1 fl (80-100); Mean Platelet Volume 10.4 fl (7.4-10.4); Monocytes Absolute Auto 0.6 K/mm3 (0.1-0.6); Monocytes Percent Auto 8.7 % (2.6-8.5); Neutrophils Absolute Auto 5.9 K/mm3 (1.3-6.7); Platelet Count Result 202 k/mm3 (150-375); Red Cell Distribution Width 15.5 % (11.5-14.5); White Blood Count 7.2 K/mm3 (4.5-10.0)
[2024-07-11 07:47] LABS: Alanine Aminotransferase 27 U/L (6-50); Albumin Level 2.8 g/dL (3.5-5.1); Alkaline Phosphatase 85 U/L (38-126); Anion Gap 7 mmol/L (4-12); Aspartate Amino Transferase 47 U/L (17-59); Bilirubin,Total 0.5 mg/dL (0.2-1.3); Blood Urea Nitrogen 24 mg/dL (9-20); Calcium 7.9 mg/dL (8.4-10.2); Carbon Dioxide 22 mmol/L (22-30); Chloride 106 mmol/L (98-107); Estimated CRCL calculation 35 ml/min; Estimated Glomerular Filt Rate 45; Glucose 101 mg/dL (65-110); Potassium 3.7 mmol/L (3.4-5.0); Sodium 135 mmol/L (137-145)
[2024-07-11] MEDS: FAMOTIDINE 20 MG TABLET PO (10:04)
[2024-07-11] MEDS: FINASTERIDE 5 MG TABLET PO (10:04)
[2024-07-11] MEDS: VENLAFAXINE HCL 25 MG TABLET 50 MG PO (10:05)
[2024-07-11] MEDS: GABAPENTIN 300 MG CAPSULE 600 MG PO ×2 (10:05→12:55)
[2024-07-11] MEDS: SERTRALINE HCL 50 MG TABLET 100 MG PO (10:05)
--- NOTE | 2024-07-11 13:14 | PCOTNOTE ---
Attempted to see pt. for occupational therapy evaluation. Pt. refused due to pain and fatigue, stating I already did this today . I educated on benefits of participation, continued to decline. Nursing aware
--- NOTE | 2024-07-11 13:49 | P.DS_ITS ---
DS: Admitting Diagnosis Discharge Date 07/11/24 Admitting Diagnosis sepsis ureterolithiasis CHANCE hypertension acute UTI DS: Discharge Diagnosis Discharge Diagnosis (1) Sepsis: Qualifiers: Acute renal failure type: unspecified Sepsis acute organ dysfunction status: with acute organ dysfunction Severe sepsis acute organ dysfunction type: acute renal failure Severe sepsis shock status: without septic shock Code(s): A41.9 - Sepsis, unspecified organism Status: Acute (2) Ureterolithiasis: Code(s): N20.1 - Calculus of ureter Status: Acute (3) Acute UTI: Code(s): N39.0 - Urinary tract infection, site not specified Status: Acute Assessment and Plan: - UA: Turbid, 3+ protein, 1+ glucose, trace ketones, 3+ blood, 3+ leuks, 11-20 RBC, greater than 100 WBC, WBC clumps present, moderate epithelial cells, 4+ bacteria. - Urine culture is pending, follow - no previous micro available for review - started on Ceftriaxone on 07/08 07/10 * blood and urine cultures pending * continue Rocephin (4) CHANCE (acute kidney injury): Code(s): N17.9 - Acute kidney failure, unspecified Status: Acute (5) HTN (hypertension): Qualifiers: Hypertension type: primary hypertension Qualified Code(s): I10 - Essential (primary) hypertension Code(s): I10 - Essential (primary) hypertension Status: Acute DS: Summary Hospital Course Reason for hospitalization: sepsis ureterolithiasis CHANCE hypertension acute UTI Hospital Course: this is a 73-year-old male who presented to the hospital on 07/08/2024 for evaluation of weakness. Workup in the hospital included a respiratory panel which was negative for influenza a and B, RSV, COVID. Chest x-ray showed mild elevation of the left hemidiaphragm otherwise no cardiopulmonary disease. CT of the abdomen and pelvis showed left-sided hydroureteronephrosis secondary to 3 mm calculus of the left ureteral vesicular junction and bilateral psis demonstrating rim calcification for which nonemergent ultrasound or CT would be recommended. Initial labs showed a white blood cell count of 17.3, hemoglobin 13.6, creatinine 2.51, EGFR 25. UA showing turbid urine appearance, 3+ urine protein, 1+ urine glucose, trace ketone, 3+ urine blood, 3+ leukocyte, 11-20 urine RBC, greater than 100 urine WBC, 4+ urine bacteria. Urine and blood cultures were obtained and pending. Rocephin was initiated. Urology was consulted and took patient to the OR on 07/08/2024 and performed a cystoscopy left retrograde pyelogram and placement of left ureter stent. Creatinine continued to improve. Urine culture was negative and Rocephin with discontinued. Wetzel catheter was removed and patient did not have any postvoid residual. He will continue on tamsulosin. He is stable for discharge at this kevin e. He will need to follow up with Urology and 1 week. Patient initially meeting sepsis criteria with elevated white blood cell count, acute kidney injury, elevated lactic acid of 3.5 which reduced to 1.4 after 2 L bolus was given in the ED. urine was showing potential UTI however UTI was ruled out with negative urine culture. Rocephin was discontinued. Sepsis was likely due to obstructing ureter stone. final diagnosis: sepsis, ureterolithiasis, acute kidney injury, acute UTI Status at Discharge Cognitive/behavioral status at discharge: alert oriented x3 Functional status at discharge: independent ambulation Overall status at discharge: patient is progressing back to baseline Time Spent with Patient Time attestation: Total time spent providing and/or coordinating discharge services: Time spent: Greater than 30 minutes Exam Narrative: General: In no acute distress, well nourished Cardiac: Normal S1 and S2. No murmur, gallops or friction rubs, peripheral pulses intact. Respiratory: Lungs clear to auscultation, no adventitious lung sounds, currently on room air Gastrointestinal: soft, non-distended, non-tender, normoactive bowel sounds. : Wetzel catheter in place Neuro: Alert and oriented x4 DS: Data Data Completed and Pending Completed studies during hospitalization: chest x-ray abdomen/pelvis CT retrograde pyelogram Pending studies at discharge: blood cultures Labs on day of discharge: Labs from last 24 hours 07/11/24 06:55 WBC 7.2 RBC 4.10 L Hgb 11.4 L Hct 34.9 L MCV 85.1 MCH 27.8 MCHC 32.7 RDW 15.5 H Plt Count 202 MPV 10.4 Immature Gran % (Auto) 0.6 H Neut % (Auto) 81.0 H Lymph % (Auto) 8.6 L [place] % (Auto) 8.7 H Eos % (Auto) 0.8 Baso % (Auto) 0.3 Lymph # (Auto) 0.62 L [place] # (Auto) 0.6 Eos # (Auto) 0.1 Baso # (Auto) 0.0 Abs Immat Gran (auto) 0.04 H Absolute Neuts (auto) 5.9 Absolute Nucleated RBC 0.000 Nucleated RBC % 0.0 Sodium 135 L Potassium 3.7 Chloride 106 Carbon Dioxide 22 Anion Gap 7 BUN 24 H Creatinine 1.53 H Estim Creat Clear Calc 35 Estimated GFR 45 L Glucose 101 Calcium 7.9 L Total Bilirubin 0.5 AST 47 ALT 27 Alkaline Phosphatase 85 Total Protein 6.0 L Albumin 2.8 L Preliminary micro results at discharge 07/08/24 17:15 Blood Culture - Preliminary Blood 07/08/24 17:04 Blood Culture - Preliminary Blood Procedures/Treatments: cystoscopy, left retrograde pyelogram and placement of left 6 [place] VL stent Discharge Plan Discharge Attending physician on discharge: Jacque Cameron Consulting providers: Rachna Ruiz; Ronald Sethi; Marisol Zhou; Aguilar Morrell; Asaf Wagoner; Ileana Presley; Pamela Jon; Alfred Acuna Discharging Clinician: Herminia Strickland Anticipated Discharge Date/Time: 07/11/24 10:00 Patient Disposition: Home, Self-Care Activity: as tolerated Diet: as tolerated and heart healthy Discharge Instructions: * Follow up with Urologist in 2 weeks * Obtain lab in 1 week to recheck your creatinine level * Continue to hold Losartan until you see your primary care doctor back and they say it is safe to resume. Patient Instructions: Antibiotic Form Patient Language: [place]uran Stand Alone Forms: General Discharge Information Follow-up/Referrals: Be,Deshawn Martinez MD [Primary Care Provider] - Rachna Ruiz MD [Physician] - 2 Weeks Discharge Medications: Continued omeprazole 20 mg capsule,delayed release(DR/EC) 20 mg PO BID finasteride 5 mg tablet 5 mg PO DAILY Rx Instructions: A.M. sertraline 100 mg tablet 100 mg PO DAILY methylphenidate HCl 20 mg tablet 20 mg PO BID venlafaxine 50 mg tablet 50 mg PO BID gabapentin 600 mg tablet 600 mg PO QID tamsulosin 0.4 mg capsule 0.4 mg PO HS pravastatin 20 mg tablet 20 mg PO HS hydrocodone-acetaminophen 7.5-325 mg tablet 1 tablet PO Q6H PRN (Reason: pain) famotidine 20 mg tablet 20 mg PO BID dapagliflozin propanediol [Farxiga] 5 mg tablet 5 mg PO DAILY Held losartan [Cozaar] 25 mg tablet 25 mg PO DAILY Hold Instructions: Resume on 07/18/24. Hold until your primary care doctor says that it is safe to resume Rx Instructions: A.M. Other Ambulatory Orders: Basic Metabolic Panel (Routine) Timeframe: 1 Week Location: Determined by Patient Ordered By: Herminia Strickland Date of admission: 07/08/24 17:02 Primary Care Provider: BeDeshawn Admitting Provider: Shiraz Brody Attending physician on admission: Herminia Strickland Condition: Improved Quality VTE Prophylaxis VTE prophylaxis: mechanical ordered Hospitalist MIPS Heart Failure (Exclusion) Patient has history of Heart Transplant or Left Ventricular Assistive Device?: No IF YES, STOP HERE Heart Failure (Qualifier) Patient has current or prior documentation of LVEF less than or equal to 40%, or mod/servere depressed LVSF?: No IF NO, STOP HERE
== END 2024-07-11 16:34 | disposition home or self-care (01) ==
LOC: ANHED 16:46 → ANHSURGERY 16:48 → ANHIMU 18:10 → ANH3MEDSUR 07-10 06:59 → ANHIMU 07-12 07:04
PROVIDERS: Emergency Medicine; Nurse Practitioner Family; Student in an Organized Health Care Education/Training Program; Urology; Admitting Provider Internal Medicine; Emergency Provider Physician Assistant; PCP Internal Medicine; Visit Provider Nurse Practitioner Acute Care
PROC: (CPT 52352; principal; 2024-07-08 18:00)
DX: A41.9 Sepsis, unspecified organism (principal); N13.2 Hydronephrosis with renal and ureteral calculous obstruction; R65.20 Severe sepsis without septic shock; N17.9 Acute kidney failure, unspecified; N47.1 Phimosis; F32.9 Major depressive disorder, single episode, unspecified; I10 Essential (primary) hypertension; E78.5 Hyperlipidemia, unspecified; N40.0 Benign prostatic hyperplasia without lower urinary tract symptoms; M54.9 Dorsalgia, unspecified; G89.29 Other chronic pain; Z20.822 Contact with and (suspected) exposure to COVID-19; Z88.2 Allergy status to sulfonamides; Z79.899 Other long term (current) drug therapy
CPT/HCPCS: 52332; 36415; 71046; 74176; 74420; 80053; 81001; 83605; 83735; 84100; 85025; 87040; 87086; 87637; 93005; 96361; 96365; 96375; 97110; 97116; 97162; 97530; 99285; A9270; C1758; C1769; C2617; G0378; J0330; J0696; J1171; J2371; J2405; J2704; J3010; J7030; J7040; J7120; Q9966